=== PATIENT | male | born 1945 | race Two or more races ===

== ENCOUNTER 2017-06-05 20:54 | Inpatient (IN) | payer MEDICARE ==
[~2017-06-05] VITALS: Ht 180.3 cm; Wt 60.5 kg
[2017-06-05 21:11] LABS: BASOPHILS % 0.2 % (0.0-1.0); EOSINOPHILS # (AUTO) 0.1 (0.0-0.4); EOSINOPHILS % 0.6 % (0.0-6.0); HEMATOCRIT 24.3 % (38.2-49.6); LYMPHOCYTES # (AUTO) 2.3 (1.0-3.2); LYMPHOCYTES % 18.8 % (18.0-39.1); MEAN CORPUSCULAR HEMOGLOBIN 29.2 pg (28-32); MEAN CORPUSCULAR HGB CONC 31.3 g/dL (31-35); MEAN CORPUSCULAR VOLUME 93.5 fL (81-99); MONOCYTES # (AUTO) 1.1 (0.2-0.8); MONOCYTES % 8.4 % (4.4-11.3); NEUTROPHILS # (AUTO) 8.9 (2.1-6.9); NEUTROPHILS % 71.5 % (38.7-80.0); PLATELET COUNT 208 x10e3/uL (140-360); RED CELL DISTRIBUTION WIDTH 12.9 % (11.7-14.4)
[2017-06-05 21:12] LABS: BILIRUBIN,URINE NEGATIVE (NEGATIVE); CLARITY,URINE SL CLOUDY (CLEAR); COLOR,URINE YELLOW (YELLOW); KETONES,URINE NEGATIVE (NEGATIVE); LEUKOCYTE ESTERASE ,URINE 1+ (NEGATIVE); NITRITE,URINE NEGATIVE (NEGATIVE); PROTEIN,URINE DIPSTICK 1+ (NEGATIVE); URINE UROBILINOGEN 8 mg/dL (0.2 - 1)
[2017-06-05 21:16] LABS: HEMOGLOBIN 7.6 g/dL (14.0-18.0)
[2017-06-05 21:17] LABS: BACTERIA,URINE MODERATE /HPF
[2017-06-05 21:18] LABS: INR 0.97; PROTHROMBIN TIME 13.4 seconds (11.9-14.5)
[2017-06-05 21:19] LABS: PARTIAL THROMBOPLASTIN TIME 22.5 seconds (23.8-35.5)
[2017-06-05 21:28] LABS: ALANINE AMINOTRANSFERASE 37 IU/L (0-55); ALBUMIN 2.2 g/dL (3.5-5.0); ALBUMIN/GLOBULIN RATIO 0.5 (0.8-2.0); ALKALINE PHOSPHATASE 81 IU/L (40-150); ANION GAP 14.3 mmol/L (8-16); BLOOD UREA NITROGEN 21 mg/dL (7-26); BUN/CREATININE RATIO 38 (6-25); CARBON DIOXIDE 28 mmol/L (22-29); CHLORIDE 98 mmol/L (98-107); CREATINE KINASE 66 IU/L (30-200); CREATININE, SERUM 0.55 mg/dL (0.72-1.25); EST GLOMERULAR FILTRATION RATE > 60 ML/MIN (60-); GLUCOSE 118 mg/dL (74-118); POTASSIUM 4.3 mmol/L (3.5-5.1); SODIUM 136 mmol/L (136-145)
[2017-06-05 21:48] LABS: TROPONIN I 0.019 ng/mL (0-0.300)
--- NOTE | 2017-06-05 21:57 | Diagnostic Imaging Report ---
CHEST SINGLE (PORTABLE), 06/05/2017 8:58 PM Technique: CHEST SINGLE (PORTABLE) Comparison: None available. Clinical history: \S\S/P CPR AT CARE HOME Findings: See Impression. Radiopaque pellets over the left greater than right chest. Impression: 1. Lines/Tubes: Tracheostomy in place. Left PICC seen at least over the left brachiocephalic vein, tip poorly visualized. 2. Cardiomediastinal silhouette thought to assess due to portable technique and low volumes. 3. Bibasilar opacities could reflect atelectasis, aspiration or infection. 4. No pneumothorax. Signed by: Dr Jessica Alvarenga MD on 06/05/2017 9:53 PM
[2017-06-05] MEDS ORDERED: ACETAMINOPHEN650 M2 PO (22:04)
[2017-06-05] MEDS ORDERED: AMLODIPINE BESYL5 MG PEG (22:05)
[2017-06-05] MEDS ORDERED: ACIDOPHILUS1 EAC1 PEG (22:05)
[2017-06-05] MEDS ORDERED: FEOSOL325 MG PEG (22:06)
[2017-06-05] MEDS ORDERED: ASCORBIC ACID500 MG PEG (22:06)
[2017-06-05] MEDS ORDERED: LASIX20 MG PEG (22:07)
[2017-06-05] MEDS ORDERED: IPRAT-ALBUT 0.5-3 ML INH (22:09)
[2017-06-05] MEDS ORDERED: MERREM500 MG IV (22:09)
[2017-06-05] MEDS ORDERED: MELATONIN3 MG PEG (22:09)
[2017-06-05] MEDS ORDERED: MIDODRINE HCL2.5 MG PEG (22:10)
[2017-06-05] MEDS ORDERED: NOVOLOG100 UNITS1 (22:11)
[2017-06-05] MEDS ORDERED: PANTOPRAZOLE SO40 MG PEG (22:12)
[2017-06-05] MEDS ORDERED: ZOFRAN ODT4 MG PEG (22:12)
[2017-06-05] MEDS ORDERED: QUETIAPINE FUMA25 MG PEG (22:13)
[2017-06-05] MEDS ORDERED: SERTRALINE HCL25 MG PEG (22:14)
[2017-06-05] MEDS ORDERED: SIMETHICON40 MG/0.6 PEG (22:15)
[2017-06-05] MEDS ORDERED: ZINC SULFATE220 M1 PEG (22:16)
[2017-06-05] MEDS ORDERED: TYLENOL WITH C1 EAC1 PEG (22:16)
[2017-06-05] MEDS ORDERED: VANCOMYCIN HCL500 MG IV (22:18)
[2017-06-05] MEDS ORDERED: ONDANSETRON HCL INJ 2 MG/ML VIAL IV STA (23:07)
[2017-06-05] MEDS: SODIUM CHLORIDE 0.9% 1000ML 1,000 ML IV SCH (23:07)
[2017-06-05] MEDS ORDERED: CEFTRIAXONE SOD 1 GM VIAL IV SCH (23:15)
[2017-06-05] MEDS ORDERED: VANCOMYCIN HCL 750 MG IV PRN (23:15)
[2017-06-05] MEDS ORDERED: AZITHROMYCIN 500MG/SOD CHL 0.9% 250ML BAG IV SCH (23:15)
[2017-06-05] MEDS ORDERED: DEXTROSE 50% SYRINGE 50 ML IV PRN (23:15)
[2017-06-05] MEDS ORDERED: SODIUM CHLORIDE 0.9% 250ML 250 ML IV ONE (23:30)
[2017-06-05] MEDS ORDERED: FUROSEMIDE INJ 10 MG/ML 2 ML VIAL IV PRN (23:30)
[2017-06-06] VITALS (64 sets, daily range): BP systolic 86–148; BP diastolic 56–88
[2017-06-06] MEDS: ACETAMINOPHEN 325 MG TAB PO PRN ×2 (02:27→16:36)
[2017-06-06] MEDS: AZITHROMYCIN 500MG/NS 250 ML 250 ML IV SCH (02:27)
[2017-06-06] MEDS: CEFTRIAXONE SOD 1 GM/NS 50 ML 50 ML IV SCH (02:27)
[2017-06-06] MEDS: ONDANSETRON HCL 4 MG ORAL DISINTEGRATING TAB PEG SCH ×3 (05:48→20:21)
[2017-06-06] MEDS: MEROPENEM 500MG/ NS 50ML 50 ML IV SCH ×3 (05:48→22:18)
[2017-06-06] MEDS ORDERED: MEROPENEM 500 MG VIAL IV SCH (06:00)
[2017-06-06 06:02] LABS: BASOPHILS % 0.2 % (0.0-1.0); EOSINOPHILS % 0.2 % (0.0-6.0); HEMATOCRIT 24.3 % (38.2-49.6); LYMPHOCYTES # (AUTO) 2.7 (1.0-3.2); LYMPHOCYTES % 20.9 % (18.0-39.1); MEAN CORPUSCULAR HEMOGLOBIN 28.9 pg (28-32); MEAN CORPUSCULAR HGB CONC 32.9 g/dL (31-35); MEAN CORPUSCULAR VOLUME 87.7 fL (81-99); MONOCYTES # (AUTO) 0.9 (0.2-0.8); MONOCYTES % 7.3 % (4.4-11.3); NEUTROPHILS # (AUTO) 9.1 (2.1-6.9); NEUTROPHILS % 70.6 % (38.7-80.0); PLATELET COUNT 226 x10e3/uL (140-360); RED BLOOD COUNT 2.77 x10e6/uL (4.3-5.7); RED CELL DISTRIBUTION WIDTH 12.8 % (11.7-14.4)
--- NOTE | 2017-06-06 06:20 | Diagnostic Imaging Report ---
CHEST SINGLE (PORTABLE), 06/06/2017 5:00 AM Technique: CHEST SINGLE (PORTABLE) Comparison: 06/05/2017. Clinical history: Pneumonia Findings: See Impression. Radiopaque pellets over the left greater than right chest. Impression: 1. Lines/Tubes: Tracheostomy in place. Left PICC terminates over the left brachiocephalic vein. 2. Stable cardiomediastinal silhouette difficult to assess due to portable technique and rotation 3. Stable low volumes with bibasilar opacities, which could reflect atelectasis or infection/aspiration. Signed by: Dr Jessica Alvarenga MD on 06/06/2017 6:17 AM
[2017-06-06 06:23] LABS: ALANINE AMINOTRANSFERASE 32 IU/L (0-55); ALBUMIN 2.1 g/dL (3.5-5.0); ALBUMIN/GLOBULIN RATIO 0.5 (0.8-2.0); ALKALINE PHOSPHATASE 78 IU/L (40-150); ANION GAP 15.5 mmol/L (8-16); BLOOD UREA NITROGEN 20 mg/dL (7-26); BUN/CREATININE RATIO 40 (6-25); CALCIUM 8.7 mg/dL (8.4-10.2); CARBON DIOXIDE 27 mmol/L (22-29); CHLORIDE 99 mmol/L (98-107); CREATINE KINASE 62 IU/L (30-200); EST GLOMERULAR FILTRATION RATE > 60 ML/MIN (60-); GLUCOSE 93 mg/dL (74-118); POTASSIUM 3.5 mmol/L (3.5-5.1); SODIUM 138 mmol/L (136-145)
[2017-06-06 06:35] LABS: TROPONIN I 0.026 ng/mL (0-0.300)
[2017-06-06] MEDS: SODIUM CHLORIDE 0.9% 1000ML 1,000 ML IV SCH ×3 (07:07→23:07)
[2017-06-06] MEDS: INSULIN REGULAR, HUMAN 100 UNIT/1 ML 3ML VIAL SQ SCH ×4 (07:30→20:20)
[2017-06-06] MEDS: AMLODIPINE BESYLATE 5 MG TAB PEG SCH (09:00)
[2017-06-06] MEDS: MIDODRINE 2.5 MG TAB PEG SCH ×3 (09:00→20:20)
[2017-06-06] MEDS: SIMETHICONE 80 MG CHEW PEG SCH ×4 (10:04→20:20)
[2017-06-06] MEDS: FERROUS SULFATE 325 MG TAB PEG SCH ×2 (10:04→16:39)
[2017-06-06] MEDS: FUROSEMIDE 20 MG TAB PEG SCH (10:04)
[2017-06-06] MEDS: LACTOBACILLUS ACIDOPHILUS CAPSULE PEG SCH ×2 (10:05→16:39)
[2017-06-06] MEDS: QUETIAPINE FUMARATE 25 MG TAB PEG SCH ×2 (10:05→16:39)
[2017-06-06] MEDS: ASCORBIC ACID 500 MG TAB PEG SCH (10:05)
[2017-06-06] MEDS: SERTRALINE HCL 50 MG TAB PEG SCH (10:06)
[2017-06-06] MEDS ORDERED: SODIUM CHLORIDE3 ML NEB (11:22)
[2017-06-06] MEDS ORDERED: MULTI-VITAMIN1 EACH PEG (11:22)
[2017-06-06] MEDS ORDERED: COLLAGENASE1 EACH (11:22)
[2017-06-06] MEDS: ACETAMINOPHEN/CODEINE 300MG - 30MG TAB PEG PRN ×2 (11:47→20:25)
[2017-06-06] MEDS ORDERED: DIPHENHYDRAMINE HCL INJ 50 MG/ML VIAL IV ONE (15:15)
[2017-06-06 15:36] LABS: TROPONIN I 0.015 ng/mL (0-0.300)
[2017-06-06] MEDS ORDERED: SODIUM CHLORIDE 0.9% 250ML 250 ML ONE ×2 (16:29→22:00)
[2017-06-06] MEDS: MELATONIN 3 MG TAB PEG SCH (20:20)
[2017-06-06 20:50] LABS: ABG PH 7.49 (7.31-7.41)
[2017-06-06] MEDS ORDERED: VANCOMYCIN 750MG/NS 150ML IVPB 150 ML IV SCH (21:00)
[2017-06-07] VITALS (29 sets, daily range): BP systolic 85–143; BP diastolic 56–85
[2017-06-07] MEDS: AZITHROMYCIN 500MG/NS 250 ML 250 ML IV SCH (01:34)
[2017-06-07] MEDS: CEFTRIAXONE SOD 1 GM/NS 50 ML 50 ML IV SCH (01:34)
[2017-06-07] MEDS ORDERED: CEFTRIAXONE SOD 1 GM VIAL ONE (01:37)
--- NOTE | 2017-06-07 04:06 | Consultation ---
DATE OF CONSULTATION: June 06, 2017 PULMONARY CONSULTATION REASON FOR CONSULTATION: ICU management. HPI: Mr. Chambers is a 72-year-old male known to me from [facility] where he was admitted for prolonged weaning from the ventilator. He was sent to the emergency room because of anemia and hematuria. He has a history of being bedbound and respiratory failure. Patient underwent intestinal surgery for volvulus, and it got complicated. Remained on the ventilator at the acute care hospital and then LTAC. Currently, has a PEG tube. Also, has a history of alcohol abuse in the past. He is denying any complaints of chest pain, nausea or vomiting. He was off the ventilator at [facility], and had a trach collar. Patient was doing well. He has not started eating yet. He is still on PEG feed. REVIEW OF SYSTEMS GENERAL: He is awake and alert. Denying any complaints of chest pain, nausea or vomiting. HEENT: Denies any head trauma or head injury. ENT: Denies any earache, nosebleed or throat pain. CV: Denies any chest pain. PAST MEDICAL HISTORY: History of volvulus surgery, which got complicated and patient remained bedbound, and had a complicated hospital course resulting in being bedbound, trach and PEG. History of alcohol abuse, hypertension, hyperlipidemia, tracheostomy, and PEG tube status. FAMILY AND SOCIAL HISTORY: He is currently living at the long-term. He has no history of smoking. Currently, ex-smoker. PHYSICAL EXAMINATION VITAL SIGNS: Temperature 99.5, pulse of 82, blood pressure 106/70, respiratory rate 18, O2 sat on 50% FIO2. He is saturating 100%. SKIN: Warm and dry. GENERAL: He is a middle-aged male not in any obvious distress. He is awake, alert and following commands. Responds to questions appropriately. HEENT: Head is atraumatic and normocephalic. Pupils are reactive. NECK: Has tracheostomy. CHEST: Clear to auscultation bilaterally. Crackles at the bases. HEART: S1 and S2 audible. No murmurs, gallops or rubs. ABDOMEN: Soft, nontender and nondistended. Has a surgical scar. PEG tube. EXTREMITIES: No clubbing, cyanosis or edema. NEUROLOGIC: Awake and alert. Chest x-ray is showing possible bibasilar infiltrates. LABS: White count of 12,000, hemoglobin 7.6 and platelets 208,000. Chemistry: Sodium 138, potassium 3.5, chloride 99, BUN 20, creatinine 0.5. Blood cultures and urine cultures are pending. ASSESSMENT AND PLAN: Russell Chambers is a 72-year-old male who presented with pneumonia, anemia with hematuria. Patient is on mechanical ventilator. Chronically on mechanical ventilator and has a tracheostomy and percutaneous endoscopic gastrostomy. CURRENT PROBLEMS 1. [id number] respiratory failure. 2. Pneumonia. 3. PEG tube status. 4. Tracheostomy status. 5. History of complicated abdominal surgeries. Patient is bedbound. PLAN 1. I will continue the patient on the ventilator support. Will try trach collar and speech as tolerated. 2. Continue the patient on Merrem and vancomycin which has been ordered. 3. Follow the blood cultures. 4. Blood transfusion has already been ordered. 5. Continue the patient on PEG feeding. cc time 45 min Job#: [id number] RI MTDD
[2017-06-07] MEDS: ACETAMINOPHEN/CODEINE 300MG - 30MG TAB PEG PRN ×3 (06:10→22:06)
[2017-06-07 06:19] LABS: BASOPHILS % 0.1 % (0.0-1.0); EOSINOPHILS # (AUTO) 0.1 (0.0-0.4); EOSINOPHILS % 0.7 % (0.0-6.0); HEMATOCRIT 27.4 % (38.2-49.6); HEMOGLOBIN 9.1 g/dL (14.0-18.0); LYMPHOCYTES # (AUTO) 2.1 (1.0-3.2); LYMPHOCYTES % 14.5 % (18.0-39.1); MEAN CORPUSCULAR HEMOGLOBIN 29.5 pg (28-32); MEAN CORPUSCULAR HGB CONC 33.2 g/dL (31-35); MONOCYTES # (AUTO) 1.4 (0.2-0.8); MONOCYTES % 9.2 % (4.4-11.3); NEUTROPHILS # (AUTO) 11.1 (2.1-6.9); PLATELET COUNT 201 x10e3/uL (140-360); RED BLOOD COUNT 3.08 x10e6/uL (4.3-5.7); RED CELL DISTRIBUTION WIDTH 14.3 % (11.7-14.4)
--- NOTE | 2017-06-07 06:19 | Diagnostic Imaging Report ---
CHEST SINGLE (PORTABLE), 06/07/2017 5:00 AM Technique: CHEST SINGLE (PORTABLE) Comparison: 06/06/2017 Clinical history: Intubated, Findings: See Impression. Radiopaque pellets over the left greater than right chest. Impression: 1. Lines/Tubes: Tracheostomy in place. Left PICC terminates over the left central brachiocephalic vein. 2. Stable cardiomediastinal silhouette 3. Persistent low volumes with improved bibasilar opacities, which could reflect atelectasis or infection/aspiration. Signed by: Dr Jessica Alvarenga MD on 06/07/2017 6:16 AM
[2017-06-07] MEDS: ONDANSETRON HCL 4 MG ORAL DISINTEGRATING TAB PEG SCH ×3 (06:24→22:05)
[2017-06-07] MEDS: MEROPENEM 500MG/ NS 50ML 50 ML IV SCH ×4 (06:24→22:05)
[2017-06-07] MEDS: SODIUM CHLORIDE 0.9% 1000ML 1,000 ML IV SCH ×3 (06:25→23:07)
[2017-06-07 06:28] LABS: ALANINE AMINOTRANSFERASE 33 IU/L (0-55); ALBUMIN/GLOBULIN RATIO 0.5 (0.8-2.0); ALKALINE PHOSPHATASE 72 IU/L (40-150); ANION GAP 10.6 mmol/L (8-16); BLOOD UREA NITROGEN 23 mg/dL (7-26); BUN/CREATININE RATIO 41 (6-25); CALCIUM 8.3 mg/dL (8.4-10.2); CARBON DIOXIDE 29 mmol/L (22-29); CHLORIDE 104 mmol/L (98-107); CREATININE, SERUM 0.56 mg/dL (0.72-1.25); EST GLOMERULAR FILTRATION RATE > 60 ML/MIN (60-); GLUCOSE 121 mg/dL (74-118); MAGNESIUM 1.7 MG/DL (1.3-2.1); PHOSPHORUS 3.2 MG/DL (2.3-4.7); POTASSIUM 3.6 mmol/L (3.5-5.1); SODIUM 140 mmol/L (136-145)
[2017-06-07] MEDS: SIMETHICONE 80 MG CHEW PEG SCH ×4 (08:31→22:05)
[2017-06-07] MEDS: FUROSEMIDE 20 MG TAB PEG SCH (08:31)
[2017-06-07] MEDS: FERROUS SULFATE 325 MG TAB PEG SCH ×2 (08:31→17:30)
[2017-06-07] MEDS: LACTOBACILLUS ACIDOPHILUS CAPSULE PEG SCH ×2 (08:31→17:30)
[2017-06-07] MEDS: MIDODRINE 2.5 MG TAB PEG SCH ×3 (08:32→22:05)
[2017-06-07] MEDS: ASCORBIC ACID 500 MG TAB PEG SCH (08:32)
[2017-06-07] MEDS: AMLODIPINE BESYLATE 5 MG TAB PEG SCH (08:32)
[2017-06-07] MEDS: QUETIAPINE FUMARATE 25 MG TAB PEG SCH ×2 (08:32→17:30)
[2017-06-07] MEDS: SERTRALINE HCL 50 MG TAB PEG SCH (08:32)
[2017-06-07] MEDS: SODIUM HYPOCHLORITE 0.5% 480 ML BTL IR SCH (09:00)
[2017-06-07] MEDS ORDERED: VANCOMYCIN 1GM/NS 250 ML 250 ML IV SCH (10:45)
[2017-06-07] MEDS: INSULIN REGULAR, HUMAN 100 UNIT/1 ML 3ML VIAL SQ SCH ×2 (12:00→18:00)
[2017-06-07] MEDS ORDERED: BISACODYL 10 MG SUPP PR ONE (12:30)
[2017-06-07] MEDS: COLLAGENASE 5 GM TUBE TOP SCH (12:31)
--- NOTE | 2017-06-07 17:09 | Consultation ---
DATE OF CONSULTATION: June 07, 2017 INFECTIOUS DISEASE CONSULTATION REASON FOR CONSULTATION: Pneumonia, hospital acquired. HISTORY OF PRESENT ILLNESS: This patient is a 72-year-old male from [facility]. The patient was admitted for prolonged weaning from a ventilator. He was sent to the emergency room with anemia, hematuria, worsening condition. The patient, who is bedbound, respiratory failure, had volvulus surgery which was complicated. He had prolonged hospitalization with acute and then LTAC and now SNF. The patient has a PEG tube placement. The patient does not really provide any meaningful information. History was taken mainly from the chart. PAST MEDICAL HISTORY: As above. Also has volvulus surgery, a complicated prolonged stay in the hospital, bedbound. Trachea placement, PEG tube placement. He has history of alcoholism, history of hypertension, history of hyperlipidemia. PAST SURGICAL HISTORY: As above. ALLERGIES: NKA. SOCIAL HISTORY: Currently there is no smoking, drug abuse, alcohol abuse, but there is history of alcoholism before. REVIEW OF SYSTEMS: Could not be obtained. His chart reviewed. His medication reviewed. His medical record reviewed. LABORATORY DATA: Reviewed. PHYSICAL EXAMINATION: GENERAL: He is currently nonverbal, does not seem in acute distress. VITALS: Stable. Currently afebrile. HEENT: He does not appear icteric. NECK: Supple. CHEST: A few rhonchi bilaterally. HEART: S1 and S2. No S3 or S4. No murmur. ABDOMEN: Soft. Bowel sounds present. No tenderness. EXTREMITIES: No edema. SKIN: No rash. Patient comes here because of shortness of breath as mentioned above and also apparently had fever. I reviewed his cultures, and I reviewed his x-ray. IMPRESSION: 1. Concerned about pneumonia, aspiration, hospital-acquired. Will put him on vancomycin and meropenem. Will check CBC, will check chem panel. 2. Anemia. 3. History of tracheostomy, history of prolonged hospitalization. Will follow with you. Job#: [id number] ARELI
[2017-06-07] MEDS ORDERED: VANCOMYCIN 750MG/NS 150ML IVPB 150 ML IV SCH (21:00)
[2017-06-07] MEDS: MELATONIN 3 MG TAB PEG SCH (22:05)
[2017-06-07] MEDS: VANCOMYCIN 1GM/NS 250 ML 250 ML IV SCH (22:05)
[2017-06-08] VITALS (23 sets, daily range): BP systolic 100–153; BP diastolic 63–96
[2017-06-08] MEDS: SODIUM CHLORIDE 0.9% 1000ML 1,000 ML IV SCH ×3 (02:30→19:19)
[2017-06-08] MEDS: ACETAMINOPHEN/CODEINE 300MG - 30MG TAB PEG PRN ×2 (02:43→09:31)
[2017-06-08] MEDS: INSULIN REGULAR, HUMAN 100 UNIT/1 ML 3ML VIAL SQ SCH ×4 (06:00→18:00)
[2017-06-08] MEDS: MEROPENEM 500MG/ NS 50ML 50 ML IV SCH ×4 (06:35→22:25)
[2017-06-08] MEDS: ONDANSETRON HCL 4 MG ORAL DISINTEGRATING TAB PEG SCH ×3 (06:35→21:38)
[2017-06-08] MEDS: ACETAMINOPHEN 325 MG TAB PO PRN ×2 (06:35→21:38)
[2017-06-08] MEDS: SIMETHICONE 80 MG CHEW PEG SCH ×4 (09:00→21:37)
[2017-06-08] MEDS: AMLODIPINE BESYLATE 5 MG TAB PEG SCH (09:00)
[2017-06-08] MEDS: FERROUS SULFATE 325 MG TAB PEG SCH ×2 (09:00→17:43)
[2017-06-08] MEDS: FUROSEMIDE 20 MG TAB PEG SCH (09:00)
[2017-06-08] MEDS: MIDODRINE 2.5 MG TAB PEG SCH ×3 (09:01→21:00)
[2017-06-08] MEDS: LACTOBACILLUS ACIDOPHILUS CAPSULE PEG SCH ×2 (09:01→17:43)
[2017-06-08] MEDS: SERTRALINE HCL 50 MG TAB PEG SCH (09:01)
[2017-06-08] MEDS: ASCORBIC ACID 500 MG TAB PEG SCH (09:01)
[2017-06-08] MEDS: QUETIAPINE FUMARATE 25 MG TAB PEG SCH ×2 (09:01→17:43)
--- NOTE | 2017-06-08 13:46 | Diagnostic Imaging Report ---
PROCEDURE: A single AP view of the chest. COMPARISON: Patients [facility], DX, CHEST SINGLE (PORTABLE), 06/07/2017, 5:08. INDICATIONS: Anemia, cystitis, pneumonia FINDINGS: Exam limited by patient rotation. Lines/tubes: Left-sided PIC line has its distal tip projecting in the region of the junction of the left innominate vein and SVC. Tracheostomy tube is unchanged. Lungs: The lungs are mildly hypoinflated. There is increased density in the left lower lung/left retrocardiac region. Patchy airspace opacity in the medial right lower lung. Pleura: Suspected left-sided effusion Heart and mediastinum: Cardiac silhouette is obscured. Central pulmonary venous congestion and perihilar interstitial edema. Bones: No acute bony abnormality. IMPRESSION: 1. increased density in the left lower lung/left retrocardiac region, which may represent a combination of left pleural effusion and associated atelectasis or consolidation/pneumonia. 2. Patchy airspace opacity in the medial right lower lung likely reflects atelectasis in this patient with hypoinflated lungs. 3. Central pulmonary venous congestion and perihilar interstitial edema. Kevin Gastelum M.D. Dictated by: Kevin Gastelum M.D. on 06/08/2017 at 13:54 Electronically approved by: Kevin Gastelum M.D. on 06/08/2017 at 13:54
[2017-06-08] MEDS: SODIUM HYPOCHLORITE 0.5% 480 ML BTL IR SCH (19:18)
[2017-06-08] MEDS: COLLAGENASE 5 GM TUBE TOP SCH (19:18)
[2017-06-08] MEDS: MELATONIN 3 MG TAB PEG SCH (21:37)
[2017-06-08] MEDS: VANCOMYCIN 1GM/NS 250 ML 250 ML IV SCH (21:37)
[2017-06-08] MEDS ORDERED: MEROPENEM 500 MG VIAL ONE (22:11)
[2017-06-09] VITALS (26 sets, daily range): BP systolic 128–218; BP diastolic 74–106
[2017-06-09] MEDS: ONDANSETRON HCL 4 MG ORAL DISINTEGRATING TAB PEG SCH ×3 (05:46→21:45)
[2017-06-09] MEDS: MEROPENEM 500MG/ NS 50ML 50 ML IV SCH ×2 (05:46→21:45)
[2017-06-09] MEDS ORDERED: MEROPENEM 500 MG VIAL ONE (05:49)
[2017-06-09] MEDS: INSULIN REGULAR, HUMAN 100 UNIT/1 ML 3ML VIAL SQ SCH ×4 (06:00→18:00)
[2017-06-09 06:17] LABS: BASOPHILS % 0.2 % (0.0-1.0); EOSINOPHILS % 0.3 % (0.0-6.0); HEMATOCRIT 28.3 % (38.2-49.6); HEMOGLOBIN 9.1 g/dL (14.0-18.0); LYMPHOCYTES % 15.1 % (18.0-39.1); MEAN CORPUSCULAR HEMOGLOBIN 29.6 pg (28-32); MEAN CORPUSCULAR HGB CONC 32.2 g/dL (31-35); MEAN CORPUSCULAR VOLUME 92.2 fL (81-99); MONOCYTES # (AUTO) 0.8 (0.2-0.8); MONOCYTES % 6.1 % (4.4-11.3); NEUTROPHILS # (AUTO) 10.4 (2.1-6.9); NEUTROPHILS % 77.9 % (38.7-80.0); PLATELET COUNT 196 x10e3/uL (140-360); RED BLOOD COUNT 3.07 x10e6/uL (4.3-5.7); RED CELL DISTRIBUTION WIDTH 13.6 % (11.7-14.4)
[2017-06-09 06:36] LABS: ANION GAP 8.9 mmol/L (8-16); BLOOD UREA NITROGEN 14 mg/dL (7-26); BUN/CREATININE RATIO 30 (6-25); CALCIUM 8.5 mg/dL (8.4-10.2); CARBON DIOXIDE 35 mmol/L (22-29); CHLORIDE 103 mmol/L (98-107); CREATININE, SERUM 0.46 mg/dL (0.72-1.25); EST GLOMERULAR FILTRATION RATE > 60 ML/MIN (60-); GLUCOSE 117 mg/dL (74-118); POTASSIUM 3.9 mmol/L (3.5-5.1); SODIUM 143 mmol/L (136-145)
[2017-06-09] MEDS: MIDODRINE 2.5 MG TAB PEG SCH ×3 (09:00→21:00)
[2017-06-09] MEDS: SERTRALINE HCL 50 MG TAB PEG SCH (09:30)
[2017-06-09] MEDS: ASCORBIC ACID 500 MG TAB PEG SCH (09:30)
[2017-06-09] MEDS: LACTOBACILLUS ACIDOPHILUS CAPSULE PEG SCH ×2 (09:30→18:53)
[2017-06-09] MEDS: SIMETHICONE 80 MG CHEW PEG SCH ×4 (09:30→21:45)
[2017-06-09] MEDS: AMLODIPINE BESYLATE 5 MG TAB PEG SCH (09:30)
[2017-06-09] MEDS: QUETIAPINE FUMARATE 25 MG TAB PEG SCH ×2 (09:30→18:53)
[2017-06-09] MEDS: FERROUS SULFATE 325 MG TAB PEG SCH ×2 (09:30→18:53)
[2017-06-09] MEDS: FUROSEMIDE 20 MG TAB PEG SCH (09:30)
[2017-06-09] MEDS: ACETAMINOPHEN/CODEINE 300MG - 30MG TAB PEG PRN (12:46)
[2017-06-09] MEDS: SODIUM CHLORIDE 0.9% 1000ML 1,000 ML IV SCH ×3 (18:52→21:45)
[2017-06-09] MEDS: COLLAGENASE 5 GM TUBE TOP SCH (18:53)
[2017-06-09] MEDS: SODIUM HYPOCHLORITE 0.5% 480 ML BTL IR SCH (18:53)
[2017-06-09] MEDS: ACETAMINOPHEN 325 MG TAB PO PRN (21:45)
[2017-06-09] MEDS: MELATONIN 3 MG TAB PEG SCH (21:45)
[2017-06-09] MEDS: VANCOMYCIN 1GM/NS 250 ML 250 ML IV SCH (22:16)
[2017-06-10] VITALS (13 sets, daily range): BP systolic 124–191; BP diastolic 70–99
[2017-06-10] MEDS: INSULIN REGULAR, HUMAN 100 UNIT/1 ML 3ML VIAL SQ SCH ×4 (06:00→18:00)
[2017-06-10] MEDS: MEROPENEM 500MG/ NS 50ML 50 ML IV SCH (06:35)
[2017-06-10] MEDS: ONDANSETRON HCL 4 MG ORAL DISINTEGRATING TAB PEG SCH ×3 (06:40→21:59)
[2017-06-10 06:47] LABS: BASOPHILS % 0.2 % (0.0-1.0); EOSINOPHILS # (AUTO) 0.1 (0.0-0.4); EOSINOPHILS % 1.2 % (0.0-6.0); HEMATOCRIT 28.1 % (38.2-49.6); HEMOGLOBIN 9.2 g/dL (14.0-18.0); LYMPHOCYTES # (AUTO) 2.2 (1.0-3.2); MEAN CORPUSCULAR HEMOGLOBIN 30.1 pg (28-32); MEAN CORPUSCULAR HGB CONC 32.7 g/dL (31-35); MEAN CORPUSCULAR VOLUME 91.8 fL (81-99); MONOCYTES # (AUTO) 0.9 (0.2-0.8); MONOCYTES % 7.7 % (4.4-11.3); NEUTROPHILS # (AUTO) 7.8 (2.1-6.9); NEUTROPHILS % 70.5 % (38.7-80.0); PLATELET COUNT 232 x10e3/uL (140-360); RED BLOOD COUNT 3.06 x10e6/uL (4.3-5.7); RED CELL DISTRIBUTION WIDTH 13.2 % (11.7-14.4)
[2017-06-10] MEDS ORDERED: ALTEPLASE RECOMBINANT 2 MG/2 ML VIAL IV PRN (07:00)
[2017-06-10 07:04] LABS: ANION GAP 8.8 mmol/L (8-16); BLOOD UREA NITROGEN 11 mg/dL (7-26); BUN/CREATININE RATIO 24 (6-25); CALCIUM 8.3 mg/dL (8.4-10.2); CARBON DIOXIDE 38 mmol/L (22-29); CHLORIDE 95 mmol/L (98-107); CREATININE, SERUM 0.46 mg/dL (0.72-1.25); EST GLOMERULAR FILTRATION RATE > 60 ML/MIN (60-); GLUCOSE 108 mg/dL (74-118); MAGNESIUM 1.8 MG/DL (1.3-2.1); POTASSIUM 3.8 mmol/L (3.5-5.1); SODIUM 138 mmol/L (136-145)
[2017-06-10] MEDS: MIDODRINE 2.5 MG TAB PEG SCH ×2 (09:00→14:21)
[2017-06-10] MEDS: SODIUM HYPOCHLORITE 0.5% 480 ML BTL IR SCH (09:10)
[2017-06-10] MEDS: COLLAGENASE 5 GM TUBE TOP SCH (09:10)
[2017-06-10] MEDS: SIMETHICONE 80 MG CHEW PEG SCH ×4 (09:28→21:58)
[2017-06-10] MEDS: QUETIAPINE FUMARATE 25 MG TAB PEG SCH ×2 (09:28→16:29)
[2017-06-10] MEDS: ASCORBIC ACID 500 MG TAB PEG SCH (09:28)
[2017-06-10] MEDS: AMLODIPINE BESYLATE 5 MG TAB PEG SCH (09:28)
[2017-06-10] MEDS: FERROUS SULFATE 325 MG TAB PEG SCH ×2 (09:28→16:29)
[2017-06-10] MEDS: SERTRALINE HCL 50 MG TAB PEG SCH (09:28)
[2017-06-10] MEDS: FUROSEMIDE 20 MG TAB PEG SCH (09:28)
[2017-06-10] MEDS: LACTOBACILLUS ACIDOPHILUS CAPSULE PEG SCH ×2 (09:28→16:29)
[2017-06-10] MEDS ORDERED: CLONIDINE HCL 0.2 MG TAB PEG PRN (10:45)
[2017-06-10] MEDS ORDERED: MEROPENEM 500 MG VIAL ONE ×2 (14:16→21:36)
[2017-06-10] MEDS: MEROPENEM 500MG 500 MG in WATER STERILE 10ML VIAL 10 ML IV SCH ×2 (14:21→21:59)
--- NOTE | 2017-06-10 15:15 | Progress Note ---
DATE: June 10, 2017 Mr. Chambers is doing better. He is out of the ICU. No new complaints. PHYSICAL EXAMINATION GENERAL: He is alert and oriented. Does not seem to be in acute distress. VITALS: Stable, currently afebrile. HEENT: Nonicteric. NECK: Supple. CHEST: A few rhonchi. COR: No murmur. ABDOMEN: Soft. Bowel sounds are present. No tenderness. EXTREMITIES: No edema. IMPRESSION: Pneumonia, aspiration, better. Finish 5 days of antibiotic. Continue PT and OT. The patient is stable to go back to his skilled care from infectious disease. Job#: [id number]
[2017-06-10] MEDS: ALBUTEROL SULF 0.083% NEB SOLN 3 ML NEB NEB PRN (15:44)
[2017-06-10] MEDS: VANCOMYCIN 1GM/NS 250 ML 250 ML IV SCH (21:00)
[2017-06-10] MEDS ORDERED: SODIUM CHLORIDE 0.9% 250ML 250 ML ONE (21:46)
[2017-06-10] MEDS: MELATONIN 3 MG TAB PEG SCH (21:58)
[2017-06-10] MEDS ORDERED: POTASSIUM CHLORIDE 20MEQ/100ML 100 ML ONE (23:00)
[2017-06-11 00:50] VITALS: BP 143/82
[2017-06-11] MEDS ORDERED: MEROPENEM 500 MG VIAL ONE ×3 (05:24→21:09)
[2017-06-11] MEDS: MEROPENEM 500MG 500 MG in WATER STERILE 10ML VIAL 10 ML IV SCH ×3 (05:48→22:17)
[2017-06-11] MEDS: ONDANSETRON HCL 4 MG ORAL DISINTEGRATING TAB PEG SCH ×3 (05:48→22:17)
[2017-06-11] MEDS: INSULIN REGULAR, HUMAN 100 UNIT/1 ML 3ML VIAL SQ SCH ×4 (06:00→18:00)
[2017-06-11 06:02] VITALS: BP 167/88
[2017-06-11 08:00] VITALS: BP 137/84
[2017-06-11] MEDS: SODIUM HYPOCHLORITE 0.5% 480 ML BTL IR SCH (09:00)
[2017-06-11] MEDS: FERROUS SULFATE 325 MG TAB PEG SCH ×2 (09:51→17:14)
[2017-06-11] MEDS: SERTRALINE HCL 50 MG TAB PEG SCH (09:51)
[2017-06-11] MEDS: SIMETHICONE 80 MG CHEW PEG SCH ×4 (09:51→21:00)
[2017-06-11] MEDS: LACTOBACILLUS ACIDOPHILUS CAPSULE PEG SCH ×2 (09:51→17:14)
[2017-06-11] MEDS: FUROSEMIDE 20 MG TAB PEG SCH (09:51)
[2017-06-11] MEDS: LISINOPRIL 10 MG TAB PO SCH (09:51)
[2017-06-11] MEDS: AMLODIPINE BESYLATE 5 MG TAB PEG SCH (09:51)
[2017-06-11] MEDS: QUETIAPINE FUMARATE 25 MG TAB PEG SCH ×2 (09:51→17:15)
[2017-06-11] MEDS: COLLAGENASE 5 GM TUBE TOP SCH (09:52)
[2017-06-11] MEDS: ASCORBIC ACID 500 MG TAB PEG SCH (09:52)
[2017-06-11] MEDS: ALBUTEROL SULF 0.083% NEB SOLN 3 ML NEB NEB PRN (11:52)
[2017-06-11 12:00] VITALS: BP 121/22
--- NOTE | 2017-06-11 13:24 | Consultation ---
DATE OF CONSULTATION: PLASTIC SURGERY CONSULTATION CONSULT REQUESTED BY: Dr. Sascha Kebede. REASON FOR CONSULTATION: Stage-IV sacral ulcer. HISTORY OF PRESENT ILLNESS: The patient is a 72-year-old male who was unable to give an accurate history. He was admitted on 06/05/2017 for anemia and cystitis. The patient apparently is bedridden and is nonambulatory. He has a trach collar in place. He has significant lower extremity contractures, and he has a stage-IV sacral ulcer of undetermined length. The patient's sacral ulcer had a wound culture performed, which is growing out multiple varieties of bacteria. Consult has been requested by plastic surgery for optimum wound management. PHYSICAL EXAMINATION: The pertinent physical exam shows a stage-IV sacral ulcer, measuring approximately 12 x 10 cm x 2.5 cm deep. It is down to the sacrum. There is devitalized soft tissue present within the wound. No purulence is noted. IMPRESSION: Stage-IV sacral decubitus ulcer with devitalized tissue and positive wound cultures. PLAN: The patient will be taken to the OR in the a.m. Under IV sedation and local anesthesia, the wound will be debrided, then pulse lavaged and then packed. Then the patient will be returned to his hospital bed for further care and treatment. Thank you for allowing me to participate in the care of your patient. Job#: [id number]
[2017-06-11 16:00] VITALS: BP 113/56
[2017-06-11 20:00] VITALS: BP 143/85
[2017-06-11] MEDS: MELATONIN 3 MG TAB PEG SCH (21:00)
[2017-06-11] MEDS: VANCOMYCIN 1GM/NS 250 ML 250 ML IV SCH (22:00)
[2017-06-12] VITALS: BP 133/65
[2017-06-12 04:00] VITALS: BP 147/71
[2017-06-12] MEDS ORDERED: MEROPENEM 500 MG VIAL ONE (05:52)
[2017-06-12] MEDS: INSULIN REGULAR, HUMAN 100 UNIT/1 ML 3ML VIAL SQ SCH ×4 (05:56→18:00)
[2017-06-12] MEDS: MEROPENEM 500MG 500 MG in WATER STERILE 10ML VIAL 10 ML IV SCH ×3 (06:41→21:25)
[2017-06-12] MEDS: ONDANSETRON HCL 4 MG ORAL DISINTEGRATING TAB PEG SCH ×3 (06:42→21:25)
[2017-06-12 07:13] LABS: BASOPHILS % 0.1 % (0.0-1.0); EOSINOPHILS # (AUTO) 0.2 (0.0-0.4); EOSINOPHILS % 1.7 % (0.0-6.0); HEMATOCRIT 28.6 % (38.2-49.6); HEMOGLOBIN 9.2 g/dL (14.0-18.0); LYMPHOCYTES # (AUTO) 1.8 (1.0-3.2); LYMPHOCYTES % 17.6 % (18.0-39.1); MEAN CORPUSCULAR HEMOGLOBIN 29.3 pg (28-32); MEAN CORPUSCULAR HGB CONC 32.2 g/dL (31-35); MEAN CORPUSCULAR VOLUME 91.1 fL (81-99); MONOCYTES # (AUTO) 0.8 (0.2-0.8); MONOCYTES % 7.4 % (4.4-11.3); NEUTROPHILS # (AUTO) 7.5 (2.1-6.9); NEUTROPHILS % 72.8 % (38.7-80.0); PLATELET COUNT 212 x10e3/uL (140-360); RED BLOOD COUNT 3.14 x10e6/uL (4.3-5.7); RED CELL DISTRIBUTION WIDTH 12.9 % (11.7-14.4)
[2017-06-12 07:41] LABS: ANION GAP 10.1 mmol/L (8-16); BLOOD UREA NITROGEN 12 mg/dL (7-26); BUN/CREATININE RATIO 28 (6-25); CALCIUM 8.7 mg/dL (8.4-10.2); CHLORIDE 89 mmol/L (98-107); CREATININE, SERUM 0.43 mg/dL (0.72-1.25); EST GLOMERULAR FILTRATION RATE > 60 ML/MIN (60-); GLUCOSE 102 mg/dL (74-118); POTASSIUM 4.1 mmol/L (3.5-5.1); SODIUM 140 mmol/L (136-145)
[2017-06-12 07:49] LABS: CARBON DIOXIDE 45 mmol/L (22-29)
[2017-06-12 08:00] VITALS: BP 134/64
[2017-06-12] MEDS: COLLAGENASE 5 GM TUBE TOP SCH (09:00)
[2017-06-12] MEDS: LACTOBACILLUS ACIDOPHILUS CAPSULE PEG SCH ×2 (09:02→17:42)
[2017-06-12] MEDS: QUETIAPINE FUMARATE 25 MG TAB PEG SCH ×2 (09:02→17:42)
[2017-06-12] MEDS: SIMETHICONE 80 MG CHEW PEG SCH ×4 (09:02→21:00)
[2017-06-12] MEDS: FERROUS SULFATE 325 MG TAB PEG SCH ×2 (09:02→17:42)
[2017-06-12] MEDS: FUROSEMIDE 20 MG TAB PEG SCH (09:02)
[2017-06-12] MEDS: AMLODIPINE BESYLATE 5 MG TAB PEG SCH (09:02)
[2017-06-12] MEDS: SODIUM HYPOCHLORITE 0.5% 480 ML BTL IR SCH (09:03)
[2017-06-12] MEDS: LISINOPRIL 10 MG TAB PO SCH (09:03)
[2017-06-12] MEDS: ASCORBIC ACID 500 MG TAB PEG SCH (09:03)
[2017-06-12] MEDS: SERTRALINE HCL 50 MG TAB PEG SCH (09:03)
[2017-06-12] MEDS ORDERED: LIDOCAINE 2% /EPINEPHRINE 20 ML SDV INJ ONE (11:36)
[2017-06-12] MEDS ORDERED: MUPIROCIN 2% OINT 22 GM TUBE ONE (11:36)
[2017-06-12] MEDS ORDERED: BACITRACIN 50,000 UNIT VIAL ONE (11:36)
[2017-06-12 12:00] VITALS: BP 126/69
[2017-06-12 16:00] VITALS: BP 134/66
[2017-06-12] MEDS: SODIUM CHLORIDE 0.9% 1000ML 1,000 ML IV SCH (17:42)
[2017-06-12] MEDS: ACETAZOLAMIDE 250 MG TAB PO SCH (17:42)
[2017-06-12 20:00] VITALS: BP 116/58
[2017-06-12] MEDS: MELATONIN 3 MG TAB PEG SCH (21:00)
[2017-06-12] MEDS: VANCOMYCIN 1GM/NS 250 ML 250 ML IV SCH (21:25)
[2017-06-13] VITALS: BP 105/55
[2017-06-13 04:00] VITALS: BP 136/73
[2017-06-13] MEDS: INSULIN REGULAR, HUMAN 100 UNIT/1 ML 3ML VIAL SQ SCH ×5 (06:00→23:48)
[2017-06-13] MEDS: ONDANSETRON HCL 4 MG ORAL DISINTEGRATING TAB PEG SCH ×3 (06:01→22:00)
[2017-06-13] MEDS: MEROPENEM 500MG 500 MG in WATER STERILE 10ML VIAL 10 ML IV SCH ×3 (06:01→22:00)
[2017-06-13 08:13] VITALS: BP 120/61
[2017-06-13] MEDS: COLLAGENASE 5 GM TUBE TOP SCH (09:00)
[2017-06-13] MEDS: FUROSEMIDE 20 MG TAB PEG SCH (09:14)
[2017-06-13] MEDS: FERROUS SULFATE 325 MG TAB PEG SCH ×2 (09:14→17:13)
[2017-06-13] MEDS: SODIUM HYPOCHLORITE 0.5% 480 ML BTL IR SCH (09:14)
[2017-06-13] MEDS: SIMETHICONE 80 MG CHEW PEG SCH ×4 (09:14→21:00)
[2017-06-13] MEDS: QUETIAPINE FUMARATE 25 MG TAB PEG SCH ×2 (09:15→17:13)
[2017-06-13] MEDS: SERTRALINE HCL 50 MG TAB PEG SCH (09:15)
[2017-06-13] MEDS: LACTOBACILLUS ACIDOPHILUS CAPSULE PEG SCH ×2 (09:15→17:13)
[2017-06-13] MEDS: ACETAZOLAMIDE 250 MG TAB PO SCH (09:15)
[2017-06-13] MEDS: AMLODIPINE BESYLATE 5 MG TAB PEG SCH (09:15)
[2017-06-13] MEDS: ASCORBIC ACID 500 MG TAB PEG SCH (09:15)
[2017-06-13] MEDS: LISINOPRIL 10 MG TAB PO SCH (09:15)
[2017-06-13] MEDS: SODIUM CHLORIDE 0.9% 1000ML 1,000 ML IV SCH (12:58)
[2017-06-13 12:59] VITALS: BP 120/59
[2017-06-13 16:18] VITALS: BP 120/58
--- NOTE | 2017-06-13 18:07 | Diagnostic Imaging Report ---
PROCEDURE:X-RAY MODIFIED BARIUM SWALLOW COMPARISON:None. INDICATIONS:Aspiration pneumonia. DISCUSSION:Fluoroscopic examination was performed in conjunction with speech pathology, during swallowing of a variety of thin and thick liquid consistencies. Radiation dose: Fluoroscopic time 3.2 minutes. Total dose 15.41 mGy FINDINGS: Premature spillage over the base of the tongue and into the vallecula with all consistencies. Premature spillage into the piriform sinuses with thin and nectar thick liquids. Deep laryngeal penetration with thin liquids and nectar thick liquids. Trace silent aspiration of thin liquids. Residual barium in the vallecula and puriform sinuses with all consistencies. CONCLUSION: Aspiration with thin liquids with deep penetration and residua as described above. Full report from speech pathology to follow. Dictated by: Mio Forbes M.D. on 06/13/2017 at 18:15 Electronically approved by: Mio Forbes M.D. on 06/13/2017 at 18:15
[2017-06-13 19:53] VITALS: BP 134/74
[2017-06-13] MEDS: VANCOMYCIN 1GM/NS 250 ML 250 ML IV SCH (20:30)
[2017-06-13] MEDS: MELATONIN 3 MG TAB PEG SCH (22:49)
[2017-06-14 00:28] VITALS: BP 131/69
[2017-06-14] MEDS: SODIUM CHLORIDE 0.9% 1000ML 1,000 ML IV SCH (04:37)
[2017-06-14] MEDS: ONDANSETRON HCL 4 MG ORAL DISINTEGRATING TAB PEG SCH ×3 (05:32→22:03)
[2017-06-14] MEDS: MEROPENEM 500MG 500 MG in WATER STERILE 10ML VIAL 10 ML IV SCH ×3 (05:33→22:03)
[2017-06-14 05:47] VITALS: BP 143/75
[2017-06-14] MEDS: INSULIN REGULAR, HUMAN 100 UNIT/1 ML 3ML VIAL SQ SCH ×3 (06:00→19:25)
[2017-06-14 06:08] LABS: BASOPHILS % 0.2 % (0.0-1.0); EOSINOPHILS # (AUTO) 0.2 (0.0-0.4); EOSINOPHILS % 2.2 % (0.0-6.0); HEMATOCRIT 26.9 % (38.2-49.6); HEMOGLOBIN 8.6 g/dL (14.0-18.0); LYMPHOCYTES % 20.3 % (18.0-39.1); MEAN CORPUSCULAR HEMOGLOBIN 29.4 pg (28-32); MEAN CORPUSCULAR VOLUME 91.8 fL (81-99); MONOCYTES # (AUTO) 0.9 (0.2-0.8); MONOCYTES % 9.4 % (4.4-11.3); NEUTROPHILS # (AUTO) 6.8 (2.1-6.9); NEUTROPHILS % 67.3 % (38.7-80.0); PLATELET COUNT 210 x10e3/uL (140-360); RED BLOOD COUNT 2.93 x10e6/uL (4.3-5.7)
[2017-06-14 06:34] LABS: ANION GAP 6.8 mmol/L (8-16); BLOOD UREA NITROGEN 15 mg/dL (7-26); BUN/CREATININE RATIO 33 (6-25); CALCIUM 8.1 mg/dL (8.4-10.2); CARBON DIOXIDE 36 mmol/L (22-29); CHLORIDE 96 mmol/L (98-107); CREATININE, SERUM 0.45 mg/dL (0.72-1.25); EST GLOMERULAR FILTRATION RATE > 60 ML/MIN (60-); GLUCOSE 111 mg/dL (74-118); POTASSIUM 3.8 mmol/L (3.5-5.1); SODIUM 135 mmol/L (136-145)
[2017-06-14 08:31] VITALS: BP 122/73
[2017-06-14] MEDS: SODIUM HYPOCHLORITE 0.5% 480 ML BTL IR SCH (09:00)
[2017-06-14] MEDS: ACETAZOLAMIDE 250 MG TAB PO SCH (09:34)
[2017-06-14] MEDS: COLLAGENASE 5 GM TUBE TOP SCH (09:34)
[2017-06-14] MEDS: LISINOPRIL 10 MG TAB PO SCH (09:34)
[2017-06-14] MEDS: LACTOBACILLUS ACIDOPHILUS CAPSULE PEG SCH ×2 (09:35→16:51)
[2017-06-14] MEDS: SERTRALINE HCL 50 MG TAB PEG SCH (09:35)
[2017-06-14] MEDS: SIMETHICONE 80 MG CHEW PEG SCH ×4 (09:35→22:03)
[2017-06-14] MEDS: FUROSEMIDE 20 MG TAB PEG SCH (09:35)
[2017-06-14] MEDS: QUETIAPINE FUMARATE 25 MG TAB PEG SCH ×2 (09:35→16:51)
[2017-06-14] MEDS: AMLODIPINE BESYLATE 5 MG TAB PEG SCH (09:35)
[2017-06-14] MEDS: ASCORBIC ACID 500 MG TAB PEG SCH (09:35)
[2017-06-14] MEDS: FERROUS SULFATE 325 MG TAB PEG SCH ×2 (09:35→16:51)
[2017-06-14 12:54] VITALS: BP 110/71
[2017-06-14 16:07] VITALS: BP 118/61
[2017-06-14 20:00] VITALS: BP 119/63
[2017-06-14] MEDS ORDERED: MEROPENEM 500 MG VIAL ONE (21:19)
[2017-06-14] MEDS: VANCOMYCIN 1GM/NS 250 ML 250 ML IV SCH (21:40)
[2017-06-14] MEDS: MELATONIN 3 MG TAB PEG SCH (22:03)
[2017-06-15 00:35] VITALS: BP 122/68
[2017-06-15] MEDS: SODIUM CHLORIDE 0.9% 1000ML 1,000 ML IV SCH (03:34)
[2017-06-15 04:00] VITALS: BP 109/60
[2017-06-15] MEDS: MEROPENEM 500MG 500 MG in WATER STERILE 10ML VIAL 10 ML IV SCH ×2 (05:35→15:49)
[2017-06-15] MEDS: ONDANSETRON HCL 4 MG ORAL DISINTEGRATING TAB PEG SCH ×2 (05:35→17:52)
[2017-06-15] MEDS: INSULIN REGULAR, HUMAN 100 UNIT/1 ML 3ML VIAL SQ SCH ×3 (06:00→12:00)
[2017-06-15 08:00] VITALS: BP_SYST 119; BP_SYST 127; BP_DIAS 56; BP_DIAS 60
[2017-06-15 09:08] LABS: ABG HCO3 35 mmol/L (23-28); ABG PCO2 59 mmHg (41-51); ABG PH 7.39 (7.31-7.41); ABG PO2 38 mmHg (80-105)
[2017-06-15] MEDS: SODIUM HYPOCHLORITE 0.5% 480 ML BTL IR SCH (10:09)
[2017-06-15] MEDS: FERROUS SULFATE 325 MG TAB PEG SCH ×2 (10:11→17:52)
[2017-06-15] MEDS: ASCORBIC ACID 500 MG TAB PEG SCH (10:12)
[2017-06-15] MEDS: LACTOBACILLUS ACIDOPHILUS CAPSULE PEG SCH ×2 (10:12→17:51)
[2017-06-15] MEDS: COLLAGENASE 5 GM TUBE TOP SCH (10:12)
[2017-06-15] MEDS: SIMETHICONE 80 MG CHEW PEG SCH ×3 (10:12→17:51)
[2017-06-15] MEDS: FUROSEMIDE 20 MG TAB PEG SCH (10:12)
[2017-06-15] MEDS: LISINOPRIL 10 MG TAB PO SCH (10:12)
[2017-06-15] MEDS: SERTRALINE HCL 50 MG TAB PEG SCH (10:12)
[2017-06-15] MEDS: ACETAZOLAMIDE 250 MG TAB PO SCH (10:12)
[2017-06-15] MEDS: QUETIAPINE FUMARATE 25 MG TAB PEG SCH ×2 (10:12→17:51)
[2017-06-15] MEDS: AMLODIPINE BESYLATE 5 MG TAB PEG SCH (10:12)
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
[2017-06-15 12:00] VITALS: BP 97/52
--- NOTE | 2017-06-15 13:59 | Consultation ---
DATE OF CONSULTATION: June 15, 2017 CARDIOLOGY CONSULTATION REASON FOR CONSULTATION: Bradycardia. HISTORY OF PRESENT ILLNESS: Mr. Chambers is a very unfortunate 72-year-old gentleman with a past medical history of chronic trach, failure to thrive, prolonged weaning from a ventilator, with prior history of hematuria, anemia, bedbound, has had prior history of volvulus intestinal surgery with complications. He is currently being maintained on a PEG tube and a trach collar. He apparently had an event overnight where a mucous plug was lodged in his airways and was in visible respiratory distress. During that time, he was monitored on telemetry; and on telemetry review, he had periods of sinus rhythm with atrial activity in between that appeared to be a block, and there was concern that this could be a 2:1 AV block. I am reviewing the telemetry strips and, in fact, there is no evidence of 2:1 blocks. Rather, he was having premature atrial contractions that were nonconducted down to the AV node due to refractory period, likely exacerbated by the hypoxia. After securing his airway and suctioning him, he went back to his baseline. He is chronically debilitated, and it is very difficult to obtain much history. He has difficulty completing full sentences and is speaking with a Passy-Luis valve. He is not entirely sure about his cardiac history and is not really able to corroborate much history to me, and I have done a chart review to try to ascertain more history. PAST MEDICAL HISTORY 1. Hypertension. 2. Hyperlipidemia. 3. Tracheostomy for chronic respiratory failure. 4. COPD, former smoker. 5. Volvulus surgery complicated with severe debility status post PEG tube. 6. Stage 4 sacral decubitus ulcer. SOCIAL HISTORY: He was previously residing at [facility]. Currently not smoking, but he was a former smoker. Former alcohol. No illicit drug use. FAMILY HISTORY: Unable to obtain any family history from him. ALLERGIES: NO KNOWN DRUG ALLERGIES. CURRENT MEDICATIONS: Include 1. Diamox 250 mg daily. 2. Lisinopril 10 mg daily. 3. Simethicone 80 mg q.i.d. 4. Seroquel 50 mg b.i.d. 5. Lasix 20 mg daily. 6. Vitamin C. 7. Norvasc 5 mg daily. 8. Meropenem 500 mg q.8 h. 9. Vancomycin q.24 h. 10. Clonidine 0.2 mg q.4 h. p.r.n. See electronic medical record for remainder of medications. REVIEW OF SYSTEMS GENERAL: Positive for fatigue, malaise. Denies any subjective fevers or chills. HEENT: No headaches, no visual complaints. Positive for sore throat. No stuffy nose. RESPIRATORY: Positive for chronic respiratory failure and difficulty catching his breath with frequent secretions. CARDIOVASCULAR: Denies any chest pain or discomfort. No syncope. No orthopnea. No known prior cardiac history. ABDOMEN: Positive for chronic abdominal pain and is being fed by a PEG tube. No bright red blood per rectum, melena, hematemesis. ID: Positive for previous infections. SKIN: Positive for a stage 4 sacral decubitus ulcer. NEUROLOGIC: Positive for extremity weakness. PSYCH: Positive for depression. REMAINDER: Negative otherwise mentioned. PHYSICAL EXAMINATION VITAL SIGNS: Height of 71 inches, weight of 133 pounds. BMI is 18.6. Temperature of 97.4, pulse of 67, respiratory rate of 18, blood pressure of 119/56, and 95% on high-flow trach collar. IN GENERAL: This is a very chronically lethargic, ill-appearing gentleman who appears way older than stated age. HEENT: Positive for trach. No JVD. LUNGS: Show poor air entry, coarse rhonchi, no wheezes, and crackles at the bases. CARDIOVASCULAR: Regular rate and rhythm. Normal S1 and S2. Soft 1/6 systolic murmur at the left lower sternal border. ABDOMEN: Skinny, scaphoid. There is old surgical scar. There is a PEG tube in place. BACK: No costovertebral angle tenderness. There is a stage 4 sacral ulcer. EXTREMITIES: Cachectic, wasted, with pedal 1+ edema. NEUROLOGIC: He is able to move all 4 extremities, albeit very weakly, and has poor effort. REMAINDER: Negative otherwise mentioned. LABS: White count of 10.0, hemoglobin 8.6, hematocrit 26.9, platelets of 210. Sodium 135, potassium 3.8, chloride 96, bicarb 36, BUN 15, creatinine 0.45, glucose of 111, calcium of 8.1. INR 0.97. UA showed 11-20 white cells on June 05. Fecal occult blood test was negative. ABG showed a pH of 7.39, pCO2 of 59, pO2 of 38, O2 sat 70%. This was during the respiratory distress episode. Chest x-ray reveals a small left pleural effusion after the rapid response. Telemetry reviewed, revealing periods of sinus bradycardia with nonconducted PACs during the rapid response event. Otherwise, remainder of tele reveals sinus rhythm. EKG reveals normal sinus rhythm, normal axis, no ST-T wave changes concerning for ischemia. DIAGNOSES 1. Questionable type II atrioventricular block. In actuality, this is sinus rhythm with nonconducted premature atrial contractions. 2. Chronic hypoxic hypercapnic respiratory failure with acute decompensation, probably likely due to a mucous plug, now seemingly at baseline. 3. Failure to thrive. 4. Stage 4 sacral decubitus ulcer. 5. Hypertension. 6. Hypercholesterolemia. PLAN/RECOMMENDATIONS 1. From a cardiovascular standpoint, will continue his medications as is. He is not on any AV dawn blocking agents, and baseline his telemetry reviewed. There is no indication for pacemaker or temporary pacing. 2. Will check an echocardiogram to look at his left ventricular function. 3. Will continue his other medical therapy. 4. Active medical issues per primary team and consultants. 5. If the patient needs to go back to his rehab/LTAC facility, it is okay for him to go. Job#: [id number] EV
[2017-06-15 16:00] VITALS: BP 121/58
== END 2017-06-15 20:58 | DRG 871 ==
LOC: ER 20:54 → ICU 23:33 → IMCU 06-10 08:10 → MED/SURG2 06-10 10:20
PROC: 5A1935Z Respiratory Ventilation, Less than 24 Consecutive Hours (ICD-10-PCS; principal; 2017-06-06)
PROC: 30243N1 Transfusion of Nonautologous Red Blood Cells into Central Vein, Percutaneous Approach (ICD-10-PCS; 2017-06-06)
DX: A41.9 Sepsis, unspecified organism (principal); J69.0 Pneumonitis due to inhalation of food and vomit; J96.21 Acute and chronic respiratory failure with hypoxia; L89.154 Pressure ulcer of sacral region, stage 4; Z93.0 Tracheostomy status; J44.9 Chronic obstructive pulmonary disease, unspecified; R13.10 Dysphagia, unspecified; J96.22 Acute and chronic respiratory failure with hypercapnia; Z68.1 Body mass index [BMI] 19.9 or less, adult; E11.9 Type 2 diabetes mellitus without complications; D50.0 Iron deficiency anemia secondary to blood loss (chronic); Z86.74 Personal history of sudden cardiac arrest; Z93.1 Gastrostomy status; R62.7 Adult failure to thrive; Z87.891 Personal history of nicotine dependence; I10 Essential (primary) hypertension; E78.5 Hyperlipidemia, unspecified; F10.21 Alcohol dependence, in remission; Z87.898 Personal history of other specified conditions; Z74.01 Bed confinement status; R53.81 Other malaise; I49.1 Atrial premature depolarization; T17.990A Other foreign object in respiratory tract, part unspecified in causing asphyxiation, initial encounter; Z79.4 Long term (current) use of insulin; I49.3 Ventricular premature depolarization; F32.9 Major depressive disorder, single episode, unspecified; Z53.20 Procedure and treatment not carried out because of patient's decision for unspecified reasons
CPT/HCPCS: 36415; 36430; 36600; 71010; 74230; 80048; 80053; 80202; 81001; 82270; 82550; 82553; 82805; 82948; 83036; 83735; 83880; 84100; 84134; 84484; 85025; 85610; 85730; 86850; 86900; 86920; 87040; 87070; 87071; 87086; 87186; 87205; 93005; 94002; 94003; 99284; J0456; J0696; J1200; J1940; J2001; J2185; J2997; J3370; J3480; J7030; J7050; P9016

== ENCOUNTER 2017-06-20 11:28 | Inpatient (IN) | payer MEDICARE ==
[~2017-06-20] VITALS: Ht 182.9 cm; Wt 64.0 kg
[2017-06-20] VITALS (69 sets, daily range): BP systolic 41–138; BP diastolic 20–98
[2017-06-20] MEDS ORDERED: NOREPINEPHRINE BITARTRATE/ NS 250 ML ONE (11:35)
[2017-06-20] MEDS ORDERED: SODIUM CHLORIDE 0.9% 1000ML 1,000 ML IV STA (11:36)
[2017-06-20] MEDS ORDERED: SODIUM CHLORIDE 0.9% 1000ML 1,000 ML ONE ×4 (11:37→18:51)
[2017-06-20] MEDS ORDERED: HYDROCORTISONE SOD SUCCINATE 100 MG VIAL IV ONE (11:45)
[2017-06-20 11:51] LABS: BASOPHILS % 0.1 % (0.0-1.0); EOSINOPHILS % 0.1 % (0.0-6.0); HEMATOCRIT 30.5 % (38.2-49.6); HEMOGLOBIN 8.9 g/dL (14.0-18.0); LYMPHOCYTES # (AUTO) 5.1 (1.0-3.2); LYMPHOCYTES % 36.3 % (18.0-39.1); MEAN CORPUSCULAR HEMOGLOBIN 29.6 pg (28-32); MEAN CORPUSCULAR HGB CONC 29.2 g/dL (31-35); MEAN CORPUSCULAR VOLUME 101.3 fL (81-99); MONOCYTES # (AUTO) 0.3 (0.2-0.8); NEUTROPHILS # (AUTO) 7.5 (2.1-6.9); NEUTROPHILS % 53.6 % (38.7-80.0); PLATELET COUNT 235 x10e3/uL (140-360); RED BLOOD COUNT 3.01 x10e6/uL (4.3-5.7)
[2017-06-20 12:03] LABS: INR 1.46; PROTHROMBIN TIME 18.5 seconds (11.9-14.5)
[2017-06-20 12:05] LABS: PARTIAL THROMBOPLASTIN TIME 57.5 seconds (23.8-35.5)
[2017-06-20 12:11] LABS: ALBUMIN 1.5 g/dL (3.5-5.0); ALBUMIN/GLOBULIN RATIO 0.4 (0.8-2.0); CALCIUM 8.4 mg/dL (8.4-10.2); CREATININE, SERUM 1.64 mg/dL (0.72-1.25)
--- NOTE | 2017-06-20 12:21 | Diagnostic Imaging Report ---
PROCEDURE:CHEST SINGLE (PORTABLE) TECHNIQUE:Portable AP chest INDICATION:Cardiac arrest COMPARISON:Patients [facility], DX, CHEST SINGLE (PORTABLE), 06/15/2017, 9:44. FINDINGS: See conclusion. CONCLUSION: 1. Tracheostomy 4.5 cm from the jo. 2. Left subclavian central venous catheter tip at the distal left brachiocephalic vein. 3. Cardiomegaly with central vascular congestion and interstitial pulmonary edema. 4. Questionable small pleural effusions with bibasilar subsegmental atelectasis. Dictated by: Glenn Fernández M.D. on 06/20/2017 at 12:30 Electronically approved by: Glenn Fernández M.D. on 06/20/2017 at 12:30
[2017-06-20] MEDS ORDERED: VANCOMYCIN 1GM/NS 250 ML 250 ML IV SCH (12:45)
[2017-06-20] MEDS ORDERED: PIPER-TAZ 3.375 GM 50 ML IV SCH (12:45)
[2017-06-20] MEDS ORDERED: HYDROMORPHONE 2MG/ML INJ ONE (13:49)
[2017-06-20 14:29] LABS: BAND NEUTROPHILS % (MANUAL) 7 %; LYMPHOCYTES % (MANUAL) 37 % (19-48); METAMYELOCYTES % (MANUAL) 1 % (0-0); MONOCYTES % (MANUAL) 8 % (3.4-9.0); MYELOCYTES % (MANUAL) 4 % (0-0); NEUTROPHILS % (MANUAL) 41 % (40-74); NUCLEATED RED BLOOD CELLS 1; PROMYELOCYTES % (MANUAL) 2 % (0-0)
[2017-06-20 14:35] LABS: ANISOCYTOSIS MODERATE; POIKILOCYTOSIS MODERATE; RBC MORPHOLOGY COMMENT ABNORMAL
[2017-06-20 14:36] LABS: HYPOCHROMASIA SLIGHT; PLATELET ESTIMATE ADEQUATE
[2017-06-20 14:37] LABS: PLATELET MORPHOLOGY COMMENT NORMAL
[2017-06-20] MEDS ORDERED: CISATRACURIUM BESYLATE 2 MG/ML IV ONE (14:45)
[2017-06-20] MEDS ORDERED: SODIUM CHLORIDE 0.9% 500ML 500 ML ONE (14:47)
[2017-06-20] MEDS ORDERED: CISATRACURIUM BESYLATE 100 MG in SODIUM CHLORIDE 0.9% 100 ML IV PRN (15:00)
--- NOTE | 2017-06-20 15:12 | Consultation ---
DATE OF CONSULTATION: June 20, 2017 PULMONARY CONSULTATION The patient is known to me from previous admission. Mr. Russell Chambers was transferred from [facility] as he was found unresponsive when the reached there. HPI: Mr. Russell Chambers is a resident of [facility]. The patient has history of volvulus surgery, which was complicated, and the patient remained on the ventilator. He received trach and PEG tube and was transferred to LTAC, where they were not able to wean him, so he was transferred to [facility] for further prolonged weaning. He has been in his usual state of health doing well. He also has a previous history of alcohol abuse. Today, per the EMS note and per the history from [facility], he was found unresponsive. When EMS reached there, he was in asystole. CPR was done. The patient was brought to [facility]. CPR was performed. ROSC was achieved; however, the patient does not have any gag or pupillary reflex. He is on a ventilator, and he is on maximum dose of Levophed, and vasopressin has been added. Family is at the bedside, and they are considering do not resuscitate status. REVIEW OF SYSTEMS: Unable to elicit any as the patient is unresponsive. PAST MEDICAL HISTORY: History of volvulus surgery. Got complicated, and the patient remained bedbound and had a complicated hospital course with tracheostomy and PEG. FAMILY AND SOCIAL HISTORY: He currently lives at [facility]. PHYSICAL EXAMINATION VITAL SIGNS: Temperature 97, pulse 81, blood pressure 121/58, respiratory rate 18. O2 sat is 100% on FiO2 of 100%, tidal volume 450. SKIN: Warm and dry. He has a trach and has a PEG. HEENT: Head atraumatic and normocephalic. Pupils are not reactive. No gag reflex. No corneal reflex. CHEST: No wheezing, no crackles. HEART: S1 and S2 audible. ABDOMEN: Soft. EXTREMITIES: Cold. No pedal edema. CHEST X-RAYS: Tracheostomy. Cardiomegaly with central congestion. Blood cultures are pending. ASSESSMENT AND PLAN: Mr. Chambers is a 72-year-old male who presented from [facility] after being found unresponsive. Patient had a cardiac arrest, asystolic arrest. PLAN 1. At this point, I will continue the patient on ventilatory support. 2. Vasopressors to keep the blood pressure MAP more than or equal to 65. 3. Continue the current ventilator setting. 4. Discussed with family at bedside in detail. That patient may have suffered anoxic brain damage. At this point, I cannot comment on neurologic recovery. Family is considering making the patient DNR. Supportive care will be performed. Chest x-ray is not showing any infiltrate. I will give a dose of vancomycin and Zosyn. cc time 50 min Job#: [id number] [facility]
[2017-06-20] MEDS: DEXTROSE 5% IV SCH (16:02)
[2017-06-20] MEDS: VASOPRESSIN IV SCH (16:02)
[2017-06-20] MEDS: CISATRACURIUM BESYLATE 100 MG in SODIUM CHLORIDE 0.9% 100 ML 50 ML IV PRN (16:03)
[2017-06-20] MEDS: FENTANYL CITRATE INJ 2000 MCG in SODIUM CHLORIDE 0.9% 210 ML IV PRN (16:03)
[2017-06-20] MEDS ORDERED: NOREPINEPHRINE BITARTRATE/ NS 250 ML IV STA (16:37)
[2017-06-20] MEDS ORDERED: VANCOMYCIN 1GM/NS 250 ML 250 ML ONE (16:47)
[2017-06-20] MEDS ORDERED: PIPER-TAZ 3.375 GM 50 ML ONE (16:47)
[2017-06-20 16:58] LABS: ABG PH 7.16 (7.31-7.41)
[2017-06-20 18:10] LABS: BASOPHILS % 0.1 % (0.0-1.0); HEMATOCRIT 25.1 % (38.2-49.6); LYMPHOCYTES # (AUTO) 2.8 (1.0-3.2); LYMPHOCYTES % 12.3 % (18.0-39.1); MEAN CORPUSCULAR HEMOGLOBIN 30.2 pg (28-32); MEAN CORPUSCULAR HGB CONC 31.9 g/dL (31-35); MEAN CORPUSCULAR VOLUME 94.7 fL (81-99); MONOCYTES # (AUTO) 0.4 (0.2-0.8); MONOCYTES % 1.5 % (4.4-11.3); NEUTROPHILS # (AUTO) 19.1 (2.1-6.9); NEUTROPHILS % 83.8 % (38.7-80.0); PLATELET COUNT 198 x10e3/uL (140-360); RED BLOOD COUNT 2.65 x10e6/uL (4.3-5.7); RED CELL DISTRIBUTION WIDTH 13.2 % (11.7-14.4)
[2017-06-20 18:20] LABS: INR 2.39; PROTHROMBIN TIME 27.4 seconds (11.9-14.5)
[2017-06-20 18:21] LABS: PARTIAL THROMBOPLASTIN TIME 75.5 seconds (23.8-35.5)
[2017-06-20 18:28] LABS: ALBUMIN 1.3 g/dL (3.5-5.0); ALBUMIN/GLOBULIN RATIO 0.4 (0.8-2.0); ANION GAP 21.5 mmol/L (8-16); CREATININE, SERUM 1.47 mg/dL (0.72-1.25); MAGNESIUM 3.2 MG/DL (1.3-2.1); POTASSIUM 4.5 mmol/L (3.5-5.1)
[2017-06-20 19:20] LABS: CREATINE KINASE MB 27.4 ng/mL (0.00-5.00)
[2017-06-20] MEDS: NOREPINEPHRINE BITARTRATE/ NS 250 ML IV PRN (19:25)
[2017-06-20] MEDS: SODIUM CHLORIDE 0.9% 1000ML 1,000 ML IV SCH (19:25)
[2017-06-20] MEDS ORDERED: HYDROCORTISONE SOD SUCCINATE 100 MG VIAL ONE (19:28)
[2017-06-20] MEDS ORDERED: EYE LUBRICANT OPTH OINT 3.5GM TUBE OP ONE ×2 (19:30→22:00)
[2017-06-20] MEDS: VANCOMYCIN 250MG/5ML ORAL SOLN PO SCH ×2 (20:52→23:59)
[2017-06-20] MEDS: PANTOPRAZOLE 40 MG 10ML VIAL IV SCH (20:52)
[2017-06-20] MEDS: PIPER-TAZ 3.375 GM 50 ML IV SCH (22:00)
[2017-06-20 22:08] LABS: BASOPHILS % 0.2 % (0.0-1.0); HEMATOCRIT 26.7 % (38.2-49.6); HEMOGLOBIN 8.5 g/dL (14.0-18.0); LYMPHOCYTES # (AUTO) 2.9 (1.0-3.2); LYMPHOCYTES % 14.6 % (18.0-39.1); MEAN CORPUSCULAR HEMOGLOBIN 29.9 pg (28-32); MEAN CORPUSCULAR HGB CONC 31.8 g/dL (31-35); MONOCYTES # (AUTO) 0.4 (0.2-0.8); MONOCYTES % 1.8 % (4.4-11.3); NEUTROPHILS # (AUTO) 16.3 (2.1-6.9); NEUTROPHILS % 81.3 % (38.7-80.0); PLATELET COUNT 228 x10e3/uL (140-360); RED BLOOD COUNT 2.84 x10e6/uL (4.3-5.7); RED CELL DISTRIBUTION WIDTH 12.9 % (11.7-14.4)
[2017-06-20 22:16] LABS: INR 2.44; PROTHROMBIN TIME 27.8 seconds (11.9-14.5)
[2017-06-20 22:17] LABS: PARTIAL THROMBOPLASTIN TIME 62.8 seconds (23.8-35.5)
[2017-06-20 22:27] LABS: ALBUMIN 1.4 g/dL (3.5-5.0); ALBUMIN/GLOBULIN RATIO 0.4 (0.8-2.0); ANION GAP 21.1 mmol/L (8-16); CALCIUM 7.1 mg/dL (8.4-10.2); CREATININE, SERUM 1.53 mg/dL (0.72-1.25); MAGNESIUM 3.2 MG/DL (1.3-2.1); PHOSPHORUS 6.7 MG/DL (2.3-4.7); POTASSIUM 4.1 mmol/L (3.5-5.1)
[2017-06-20] MEDS: SODIUM BICARBONATE 8.4% SYRING 75 ML in SODIUM CHLORIDE 0.45% 1,000 ML IV SCH (23:59)
[2017-06-21] VITALS (101 sets, daily range): BP systolic 58–158; BP diastolic 32–109
[2017-06-21] MEDS: NOREPINEPHRINE BITARTRATE/ NS 250 ML IV PRN ×2 (00:15→04:30)
[2017-06-21] MEDS: SODIUM CHLORIDE 0.9% 1000ML 1,000 ML IV SCH ×4 (01:51→20:54)
[2017-06-21] MEDS: CISATRACURIUM BESYLATE 100 MG in SODIUM CHLORIDE 0.9% 100 ML 50 ML IV PRN (02:53)
[2017-06-21] MEDS: FENTANYL CITRATE INJ 2000 MCG in SODIUM CHLORIDE 0.9% 210 ML IV PRN ×2 (04:16→21:26)
[2017-06-21 04:23] LABS: BASOPHILS # (AUTO) 0.1 (0.0-0.1); BASOPHILS % 0.2 % (0.0-1.0); HEMATOCRIT 26.1 % (38.2-49.6); HEMOGLOBIN 8.3 g/dL (14.0-18.0); LYMPHOCYTES # (AUTO) 3.5 (1.0-3.2); LYMPHOCYTES % 14.5 % (18.0-39.1); MEAN CORPUSCULAR HEMOGLOBIN 29.5 pg (28-32); MEAN CORPUSCULAR HGB CONC 31.8 g/dL (31-35); MEAN CORPUSCULAR VOLUME 92.9 fL (81-99); MONOCYTES # (AUTO) 0.8 (0.2-0.8); MONOCYTES % 3.2 % (4.4-11.3); NEUTROPHILS # (AUTO) 19.7 (2.1-6.9); NEUTROPHILS % 81.1 % (38.7-80.0); PLATELET COUNT 201 x10e3/uL (140-360); RED BLOOD COUNT 2.81 x10e6/uL (4.3-5.7); RED CELL DISTRIBUTION WIDTH 13.2 % (11.7-14.4)
[2017-06-21 04:33] LABS: INR 2.33; PROTHROMBIN TIME 26.8 seconds (11.9-14.5)
[2017-06-21 04:34] LABS: PARTIAL THROMBOPLASTIN TIME 57.3 seconds (23.8-35.5)
[2017-06-21 04:41] LABS: ALBUMIN 1.4 g/dL (3.5-5.0); ALBUMIN/GLOBULIN RATIO 0.5 (0.8-2.0); CREATININE, SERUM 1.59 mg/dL (0.72-1.25); MAGNESIUM 3.1 MG/DL (1.3-2.1)
[2017-06-21 04:50] LABS: CALCIUM 6.9 mg/dL (8.4-10.2)
[2017-06-21] MEDS: EYE LUBRICANT OPTH OINT 3.5GM TUBE OP SCH ×5 (06:14→22:23)
[2017-06-21] MEDS: PIPER-TAZ 3.375 GM 50 ML IV SCH (06:14)
[2017-06-21] MEDS: VANCOMYCIN 250MG/5ML ORAL SOLN PO SCH ×3 (06:36→18:00)
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
[2017-06-21] MEDS: NOREPINEPHRINE INJ 4MG/4ML 8 MG in SODIUM CHLORIDE 0.9% 250ML 250 ML IV PRN ×2 (10:00→14:27)
[2017-06-21] MEDS: PHENYLEPHRINE IV SCH ×2 (11:09→22:24)
[2017-06-21] MEDS: SODIUM CHLORIDE 0.9% IV SCH ×2 (11:09→22:24)
[2017-06-21] MEDS: PANTOPRAZOLE 40 MG 10ML VIAL IV SCH ×2 (11:10→18:26)
[2017-06-21 12:07] LABS: BASOPHILS % 0.1 % (0.0-1.0); LYMPHOCYTES # (AUTO) 4.2 (1.0-3.2); LYMPHOCYTES % 16.1 % (18.0-39.1); MEAN CORPUSCULAR HEMOGLOBIN 30.1 pg (28-32); MEAN CORPUSCULAR HGB CONC 32.4 g/dL (31-35); MONOCYTES # (AUTO) 0.9 (0.2-0.8); MONOCYTES % 3.3 % (4.4-11.3); NEUTROPHILS # (AUTO) 20.5 (2.1-6.9); NEUTROPHILS % 79.3 % (38.7-80.0); PLATELET COUNT 150 x10e3/uL (140-360); RED BLOOD COUNT 2.29 x10e6/uL (4.3-5.7); RED CELL DISTRIBUTION WIDTH 13.4 % (11.7-14.4)
[2017-06-21 12:10] LABS: HEMOGLOBIN 6.9 g/dL (14.0-18.0)
[2017-06-21 12:11] LABS: HEMATOCRIT 21.3 % (38.2-49.6)
[2017-06-21 12:21] LABS: INR 2.85; PARTIAL THROMBOPLASTIN TIME 51.3 seconds (23.8-35.5); PROTHROMBIN TIME 31.5 seconds (11.9-14.5)
[2017-06-21] MEDS ORDERED: SODIUM CHLORIDE 0.9% 250ML 250 ML IV PRN (12:30)
[2017-06-21 12:35] LABS: CREATINE KINASE MB 36.1 ng/mL (0.00-5.00)
[2017-06-21] MEDS: DEXTROSE 5% IV SCH ×2 (12:45→21:27)
[2017-06-21] MEDS: VASOPRESSIN IV SCH ×2 (12:45→21:27)
[2017-06-21 12:51] LABS: ALBUMIN 1.1 g/dL (3.5-5.0); ALBUMIN/GLOBULIN RATIO 0.4 (0.8-2.0); ANION GAP 17.8 mmol/L (8-16); CREATININE, SERUM 1.49 mg/dL (0.72-1.25); MAGNESIUM 2.7 MG/DL (1.3-2.1); POTASSIUM 3.8 mmol/L (3.5-5.1)
[2017-06-21] MEDS ORDERED: MEROPENEM 1GM 100 ML IV SCH (14:00)
[2017-06-21] MEDS ORDERED: PIPERACILLIN/TAZOBAC 3.375 GM in SODIUM CHLORIDE 0.9% 100 ML IV SCH (14:00)
[2017-06-21] MEDS: MEROPENEM 1 GM VIAL IV SCH ×2 (14:46→22:22)
[2017-06-21 14:53] LABS: ABG PCO2 33 mmHg (41-51); ABG PH 7.24 (7.31-7.41); ABG PO2 90 mmHg (80-105)
[2017-06-21 14:54] LABS: ABG HCO3 14 mmol/L (23-28)
[2017-06-21] MEDS ORDERED: NOREPINEPHRINE IV PRN ×2 (16:15→18:00)
[2017-06-21] MEDS ORDERED: SODIUM CHLORIDE 0.9% IV PRN ×2 (16:15→18:00)
[2017-06-21] MEDS ORDERED: VANCOMYCIN 1GM/NS 250 ML 250 ML IV SCH (17:15)
[2017-06-21 18:59] LABS: BASOPHILS % 0.1 % (0.0-1.0); LYMPHOCYTES # (AUTO) 3.2 (1.0-3.2); MEAN CORPUSCULAR HGB CONC 31.3 g/dL (31-35); MEAN CORPUSCULAR VOLUME 95.8 fL (81-99); MONOCYTES # (AUTO) 0.9 (0.2-0.8); MONOCYTES % 4.1 % (4.4-11.3); NEUTROPHILS # (AUTO) 17.2 (2.1-6.9); NEUTROPHILS % 79.6 % (38.7-80.0); PLATELET COUNT 136 x10e3/uL (140-360); RED CELL DISTRIBUTION WIDTH 13.6 % (11.7-14.4)
[2017-06-21 19:01] LABS: HEMOGLOBIN 5.7 g/dL (14.0-18.0)
[2017-06-21 19:02] LABS: HEMATOCRIT 18.2 % (38.2-49.6)
[2017-06-21 19:08] LABS: INR 3.13; PROTHROMBIN TIME 33.9 seconds (11.9-14.5)
[2017-06-21 19:09] LABS: PARTIAL THROMBOPLASTIN TIME 51.4 seconds (23.8-35.5)
[2017-06-21] MEDS ORDERED: SODIUM CHLORIDE 0.9% 250ML 250 ML ONE (19:15)
[2017-06-21 19:18] LABS: ALBUMIN 1.1 g/dL (3.5-5.0); ALBUMIN/GLOBULIN RATIO 0.5 (0.8-2.0); ANION GAP 20.3 mmol/L (8-16); CREATININE, SERUM 1.55 mg/dL (0.72-1.25); MAGNESIUM 2.7 MG/DL (1.3-2.1); POTASSIUM 4.3 mmol/L (3.5-5.1)
[2017-06-21 19:22] LABS: CALCIUM 6.1 mg/dL (8.4-10.2)
[2017-06-21] MEDS: SODIUM BICARBONATE 8.4% SYRING 75 ML in SODIUM CHLORIDE 0.45% 1,000 ML IV SCH (20:54)
--- NOTE | 2017-06-21 22:26 | Consultation ---
DATE OF CONSULTATION: June 21, 2017 BRIEF EVALUATION REASON FOR THE EVALUATION: Status post CPR, shock status, active GI bleed, hypotension, on several inotropes. HISTORY: This is an unfortunate 72-year-old gentleman who is known with chronic respiratory failure, on chronic tracheostomy; failure to thrive; prolonged weaning from ventilator; history of chronic anemia; hematuria; history of volvulus intestinal surgery, complicated. Patient for the longest time is on PEG tube and tracheostomy collar. He is also needed to be on ventilator. He had several episodes of respiratory arrest in the past. Patient was in the [facility], he became unresponsive, CPR was started with the bagging they established, ROSC achieved. However, he does not have any gag or pupillary reflex as per pulmonary/critical care evaluation. He was placed on ventilator. He needs to have several inotropes to maintain blood pressure. It was noted he is having black secretion from his PEG tube. He is not making any urine. He is on several inotropes. REVIEW OF SYSTEMS: Unable to get. PHYSICAL EXAMINATION: GENERAL: Patient is on ventilator via tracheostomy. He is on cooling protocol. He is on several inotropes. VITAL SIGNS: His blood pressure almost at 100/90, heart rate of 103. HEENT: Pupils are not reactive. No response to stimuli. NECK: Neck collar, tracheostomy, and ventilator are noted. CHEST: Bilateral crackles. HEART: Tachycardia. ABDOMEN: PEG tube in place. : Trejo catheter is noted in place. EXTREMITIES: Wasted, cachectic. NEUROLOGIC: Patient is unresponsive. IMPRESSION AND PLAN: 1. Status post cardiopulmonary resuscitation. 2. Anoxic encephalopathy. 3. Failure to thrive. 4. Sacral decubitus ulcers. 5. Percutaneous endoscopic gastrostomy tube. 6. Trejo catheter. 7. Severe hypotension with need of several inotropes. 8. Gastrointestinal bleed, most likely prognosis guarded. RECOMMENDATIONS: Supportive care, DNR status. Job#: [id number]
[2017-06-22] VITALS (47 sets, daily range): BP systolic 74–115; BP diastolic 56–83
[2017-06-22] MEDS: VANCOMYCIN 250MG/5ML ORAL SOLN PO SCH ×3 (00:23→12:00)
[2017-06-22] MEDS: EYE LUBRICANT OPTH OINT 3.5GM TUBE OP SCH ×3 (03:13→10:00)
[2017-06-22] MEDS: SODIUM CHLORIDE 0.9% 1000ML 1,000 ML IV SCH ×2 (03:38→05:23)
[2017-06-22] MEDS: SODIUM CHLORIDE 0.9% IV SCH ×2 (03:40→09:50)
[2017-06-22] MEDS: PHENYLEPHRINE IV SCH ×2 (03:40→09:50)
[2017-06-22 04:39] LABS: BASOPHILS # (AUTO) 0.1 (0.0-0.1); BASOPHILS % 0.3 % (0.0-1.0); LYMPHOCYTES # (AUTO) 3.1 (1.0-3.2); LYMPHOCYTES % 14.7 % (18.0-39.1); MEAN CORPUSCULAR HEMOGLOBIN 30.8 pg (28-32); MEAN CORPUSCULAR HGB CONC 32.1 g/dL (31-35); MEAN CORPUSCULAR VOLUME 95.9 fL (81-99); MONOCYTES % 4.8 % (4.4-11.3); NEUTROPHILS # (AUTO) 16.5 (2.1-6.9); NEUTROPHILS % 78.6 % (38.7-80.0); PLATELET COUNT 125 x10e3/uL (140-360); RED BLOOD COUNT 2.92 x10e6/uL (4.3-5.7); RED CELL DISTRIBUTION WIDTH 13.7 % (11.7-14.4)
[2017-06-22 04:55] LABS: INR 3.57; PROTHROMBIN TIME 37.6 seconds (11.9-14.5)
[2017-06-22 04:56] LABS: PARTIAL THROMBOPLASTIN TIME 52.5 seconds (23.8-35.5)
[2017-06-22 05:01] LABS: ANISOCYTOSIS MODERATE; BAND NEUTROPHILS % (MANUAL) 10 %; EOSINOPHILS % (MANUAL) 1 % (0-7); LYMPHOCYTES % (MANUAL) 15 % (19-48); MONOCYTES % (MANUAL) 3 % (3.4-9.0); NEUTROPHILS % (MANUAL) 71 % (40-74); NUCLEATED RED BLOOD CELLS 1; PLATELET MORPHOLOGY COMMENT FEW LARGE; POIKILOCYTOSIS SLIGHT; RBC MORPHOLOGY COMMENT ABNORMAL
[2017-06-22 05:02] LABS: PLATELET ESTIMATE SLIGHTLY DECREASED
[2017-06-22 05:03] LABS: ALBUMIN 1.2 g/dL (3.5-5.0); ALBUMIN/GLOBULIN RATIO 0.5 (0.8-2.0); ANION GAP 23.4 mmol/L (8-16); CREATININE, SERUM 1.72 mg/dL (0.72-1.25); MAGNESIUM 2.8 MG/DL (1.3-2.1); POTASSIUM 5.4 mmol/L (3.5-5.1)
[2017-06-22] MEDS ORDERED: DEXTROSE 50% SYRINGE 50 ML IV ONE (05:15)
[2017-06-22] MEDS: MEROPENEM 1 GM VIAL IV SCH (05:23)
[2017-06-22] MEDS ORDERED: DEXTROSE 50% SYRINGE 50 ML IV STA (06:44)
[2017-06-22] MEDS ORDERED: DEXTROSE 50% SYRINGE 50 ML IV PRN (07:00)
[2017-06-22] MEDS: PANTOPRAZOLE 40 MG 10ML VIAL IV SCH (08:37)
--- NOTE | 2017-06-22 11:40 | Diagnostic Imaging Report ---
CHEST SINGLE (PORTABLE), 06/22/2017 5:00 AM Technique: CHEST SINGLE (PORTABLE) Comparison: 06/07/2017 Clinical history: Shortness of breath Findings: See Impression. Radiopaque pellets over the left greater than right chest. Impression: 1. Lines/Tubes: Tracheostomy in place. Left PICC unchanged over the left central brachiocephalic vein. 2. Stable cardiomediastinal silhouette 3. Low volumes with increasing bibasilar opacities/volume loss, which could reflect atelectasis/mucous plugging and/or infection/aspiration. Possible layering left effusion. Signed by: Dr Jessica Alvarenga MD on 06/22/2017 6:52 AM
--- NOTE | 2017-08-06 21:50 | Discharge Summary ---
SUMMARY CHIEF COMPLAINT: 1. Status post cardiac arrest. 2. Large stage 4 sacral decubitus. FINAL DIAGNOSES 1. Anoxic encephalopathy. 2. Ventilator dependent. 3. Anemia. 4. Acute renal failure. PROCEDURE: Transfusion of packed cells. A 72-year-old male with known history of chronic respiratory failure, on vent, bedbound, has stage 4 sacral decubitus. Patient had an unwitnessed arrest at his SNF facility. Brought to the ER with CPR in progress. The patient pulse and BP and with further aggressive management of care the patient was admitted to ICU for evaluation. On my review it was noted that the patient's pupils were fixed and dilated. Chest was revealing inspiratory crackles. Patient was noted to be comatose, totally unresponsive. He was admitted to ICU for care regarding status post CPR, anoxic encephalopathy, chronic respiratory failure, sacral decubitus stage 4. Will continue ICU. He will be directed with comfort care. Obtain cultures. Begin IV fluids and IV antibiotics. In ICU regarding respiratory state, Dr. Joshua was following from a pulmonary standpoint. His impression was cardiac arrest, asystole arrest. Will continue vent support, vasopressors and keep BP. Case was discussed with family. Patient may have suffered anoxic brain damage. The family was considering making the patient DNR. Supportive care will be performed. He is also being reviewed by cardiology, Dr. Jacob, regarding his issues of status post CPR, hypotension. His impression was status post cardiopulmonary resuscitation, anoxic encephalopathy, failure to thrive, sacral decubitus ulcers, on-board PEG tube, Trejo catheter, severe hypotension and needs cerebral inotropes. Gastrointestinal bleed most likely prognosis guarded. The patient began his stay in ICU, NPO, nutrition through his PEG. Nonresponsive. Was started on vasopressors and given Fentanyl. He was started on vancomycin 1 gram IV q.24, Zosyn 3.375, norepinephrine, p.o. vancomycin 250 q.6. Laboratory studies showing stable electrolytes. BUN is 40. Creatinine was 1.59. Glucose 151. CBC shows hemoglobin of 8.3, white cell count of 24,000. INR noted to be at 2.33. Liver studies were showing a total bilirubin 1.6. AST 66, 78, ALT 51 and 83, alkaline phos 566. Chest x-rays were showing bilateral infiltrates with some pleural effusion. Noted by Dr. Joshua the prognosis was very poor. Will be taking the patient off Zosyn. Patient continued on ventilator, unresponsive. Was started on hypothermia protocol. It was noted that his temperature on 06/21 was 91.4. BP 79/64. Hemoglobin trended down to 6.9. White cell count increased to 25,700. The patient was being typed and cross matched for packed RBCs. Further discussion with the family led to their wishes of wanting to withdraw care. Was noted to have no corneal reflex. On 06/22, his potassium was 5.4, BUN 44, creatinine 1.72, glucose 20. Hemoglobin post transfusion was 9. White cell count 21,000. Total bilirubin of 1.5. AST 39 and 89. ALT 40, 71. Alkaline phos 508. The patient is now off ventilator, on maximum pressors. Still running a BP of 91/56. He is suffering from septic shock, acute kidney injury, status post cardiac arrest, respiratory failure. On June 22, 2017 at 1150 hours the ER physician was asked to review the patient in ICU. Patient was pronounced . I was made aware of the patient's demise by the nursing line construction supervisor. Dictated By: OMEGA Rowe Job#: [id number]
== END 2017-06-22 11:50 | disposition expired | DRG 871 ==
LOC: ER 11:28 → ICU 17:35 → ERHOLD 17:46 → ICU 18:11
PROC: 5A1945Z Respiratory Ventilation, 24-96 Consecutive Hours (ICD-10-PCS; principal; 2017-06-20)
PROC: 02HV33Z Insertion of Infusion Device into Superior Vena Cava, Percutaneous Approach (ICD-10-PCS; 2017-06-20)
PROC: 30243N1 Transfusion of Nonautologous Red Blood Cells into Central Vein, Percutaneous Approach (ICD-10-PCS; 2017-06-21)
DX: A41.9 Sepsis, unspecified organism (principal); R65.21 Severe sepsis with septic shock; I46.9 Cardiac arrest, cause unspecified; J96.20 Acute and chronic respiratory failure, unspecified whether with hypoxia or hypercapnia; E43 Unspecified severe protein-calorie malnutrition; J18.9 Pneumonia, unspecified organism; G93.1 Anoxic brain damage, not elsewhere classified; L89.154 Pressure ulcer of sacral region, stage 4; N17.9 Acute kidney failure, unspecified; K92.2 Gastrointestinal hemorrhage, unspecified; D62 Acute posthemorrhagic anemia; Z68.1 Body mass index [BMI] 19.9 or less, adult; R62.7 Adult failure to thrive; Z66 Do not resuscitate; R68.0 Hypothermia, not associated with low environmental temperature; Z93.1 Gastrostomy status; Z74.01 Bed confinement status; Z87.891 Personal history of nicotine dependence; I51.7 Cardiomegaly; F10.21 Alcohol dependence, in remission; Z51.5 Encounter for palliative care; R40.2433 Glasgow coma scale score 3-8, at hospital admission
CPT/HCPCS: 36415; 36430; 36556; 71010; 80053; 82550; 82553; 82805; 82948; 83605; 83735; 84100; 84484; 85025; 85379; 85610; 85730; 86850; 86900; 86920; 87040; 87071; 87186; 87205; 87493; 94002; 94003; 99285; J1720; J2185; J2370; J2543; J3370; J7030; J7040; J7050; J7799; P9016

== ENCOUNTER → 2017-06-20 | Outpatient (CLI) | payer OTHER ==
[~2017-06-20] MED LIST: ACETAMINOPHEN650 M2 PO; ACIDOPHILUS1 EAC1 PEG; AMLODIPINE BESYL5 MG PEG; ASCORBIC ACID500 MG PEG; COLLAGENASE1 EACH; FEOSOL325 MG PEG; IPRAT-ALBUT 0.5-3 ML INH; LASIX20 MG PEG; MELATONIN3 MG PEG; MERREM500 MG IV; MIDODRINE HCL2.5 MG PEG; MULTI-VITAMIN1 EACH PEG; NOVOLOG100 UNITS1; PANTOPRAZOLE SO40 MG PEG; QUETIAPINE FUMA25 MG PEG; SERTRALINE HCL25 MG PEG; SIMETHICON40 MG/0.6 PEG; SODIUM CHLORIDE3 ML NEB; TYLENOL WITH C1 EAC1 PEG; VANCOMYCIN HCL500 MG IV; ZINC SULFATE220 M1 PEG; ZOFRAN ODT4 MG PEG
[2017-06-21 11:11] LABS: ANION GAP 12.4 mmol/L (8-16); CREATININE, SERUM 1.46 mg/dL (0.72-1.25); POTASSIUM 4.4 mmol/L (3.5-5.1)
[2017-06-21 11:12] LABS: CALCIUM 9.1 mg/dL (8.4-10.2); HEMATOCRIT 30.5 % (38.2-49.6); HEMOGLOBIN 8.8 g/dL (14.0-18.0); MEAN CORPUSCULAR VOLUME 103.4 fL (81-99); RED BLOOD COUNT 2.95 x10e6/uL (4.3-5.7)
[2017-06-21 11:14] LABS: BASOPHILS % 0.4 % (0.0-1.0); LYMPHOCYTES # (AUTO) 3.7 (1.0-3.2); LYMPHOCYTES % 21.5 % (18.0-39.1); MEAN CORPUSCULAR HEMOGLOBIN 29.8 pg (28-32); MEAN CORPUSCULAR HGB CONC 28.9 g/dL (31-35); MONOCYTES # (AUTO) 1.4 (0.2-0.8); MONOCYTES % 7.7 % (4.4-11.3); NEUTROPHILS # (AUTO) 12.2 (2.1-6.9); NEUTROPHILS % 70.1 % (38.7-80.0); PLATELET COUNT 313 x10e3/uL (140-360)
== END ==
LOC: NPA 10:00
DX: R69 Illness, unspecified (principal)
CPT/HCPCS: 36415; 80048; 85025